=== PATIENT | female | born 1965 | race African-American/Black ===

== ENCOUNTER 2018-04-19 02:06 | Observation (INO) ==
[2018-04-19] MEDS ORDERED: NALOXONE 0.4 MG/ML VIAL IV STA (03:19)
[2018-04-19] MEDS ORDERED: FLUMAZENIL 0.5 MG/5 ML VIAL IV PRN (03:19)
[2018-04-19] MEDS ORDERED: LORazepam 2 MG/1 ML VIAL ONE (03:56)
[2018-04-19] MEDS ORDERED: LORazepam 2 MG/1 ML VIAL IV STA (04:00)
[2018-04-19 04:31] LABS: Basophils % 0.5 % (0.0-0.8); Eosinophils # 0.1 10*3/uL (0.0-0.87); Hematocrit 45.4 VOL% (35.7-47.0); Hemoglobin 15.4 GM/DL (12.0-16.0); Immature Granulocytes % 0.5 %; Immature Granulocytes Absolute 0.03 #; Lymphocytes % 17.5 % (21.3-54.2); Mean Corpuscular HGB Conc 33.9 GM/DL (32-36); Mean Corpuscular Hemoglobin 35 PG (27-34); Mean Corpuscular Volume 104.1 FL (87-102); Mean Platelet Volume 9.7 FL (9.6-12.0); Monocytes # 0.2 10*3/uL (0.11-0.8); Monocytes % 3.8 % (1.7-12.7); Neutrophils # 4.5 10*3/uL (1.4-7.4); Neutrophils % 76.7 % (38.7-73.9); Platelet Count 302 T/CUMM (130-400); Red Blood Count 4.36 MC/CUMM (3.8-5.5); Red Cell Distribution Width 12.3 % (9.3-17.3); White Blood Count 5.8 T/CUMM (4-12)
[2018-04-19 04:46] LABS: Ammonia 56 UMOL/L (11-32)
[2018-04-19 04:59] LABS: Alanine Aminotransferase 16 U/L (13-56); Albumin 3.6 G/DL (3.4-5.0); Alkaline Phosphatase 120 U/L (45-117); Aspartate Amino Transferase 18 U/L (0-37); Bilirubin,Total < 0.39 MG/DL (0.2-1.0); Blood Urea Nitrogen 5 MG/DL (7-18); Calcium 8.3 MG/DL (8.5-10.1); Glucose 91 MG/DL (74-106); Osmolality,Calculated 260.5 MOS/KG (273-304); Sodium 132 MMOL/L (136-145); Total Protein 8.4 G/DL (6.4-8.3)
[2018-04-19 05:07] LABS: Hypochromasia 1+; Platelet Estimate Adequate
[2018-04-19 05:12] LABS: Apearance,Urine CLEAR (Clear); Bacteria,Urine Occasional /HPF (Few); Bilirubin,Urine Negative (Negative); Blood, Urine Negative (Negative); Glucose,Urine (UA) Negative (Negative); Ketones,Urine Negative (Negative); Mucus,Urine Occasional /LPF (Occasional); Nitrite,Urine Negative (Negative); Protein,Urine Negative; RBC,Urine 1 /HPF (0-4); Squamous Epithelial Cell,Urine Occasional /HPF (0-10); Urine Color Straw (Yellow); Urine Specific Gravity 1.004 (1.001-1.035); Urine Urobilinogen < 2.0 EU/DL (0.2-1.0); WBC,Urine <1 /HPF (0-6)
[2018-04-19 05:25] LABS: Barbiturates Screen,Urine Negative (Negative); Benzodiazepines Screen,Urine Negative (Negative); Cannabinoid Screen,Urine Positive (Negative); Opiate Screen,Urine Negative (Negative); Phencyclidine Screen,Urine Negative (Negative)
[2018-04-19] MEDS ORDERED: ONDANSETRON 4 MG/2 ML VIAL IV PRN (06:00)
[2018-04-19] MEDS ORDERED: ALBUTEROL 2.5 MG/3 ML NEB RESP TX PRN (06:00)
[2018-04-19] MEDS ORDERED: ACETAMINOPHEN 325 MG TABLET PO PRN (06:00)
[2018-04-19] MEDS ORDERED: LORazepam 2 MG/1 ML VIAL IV PRN (06:06)
[2018-04-19] MEDS: SODIUM CHLORIDE 0.9% 1,000 ML IV SCH ×3 (08:17→22:45)
[2018-04-19] MEDS: PANTOPRAZOLE 40 MG VIAL IV SCH (08:52)
[2018-04-19] MEDS: ENOXAPARIN 40 MG/0.4 ML SYRINGE SUBCUT SCH (08:52)
[2018-04-19] MEDS: LACTULOSE 20 GM/30 ML UDCUP PO SCH ×2 (11:07→21:07)
[2018-04-20 05:12] LABS: Basophils % 0.8 % (0.0-0.8); Eosinophils # 0.1 10*3/uL (0.0-0.87); Hematocrit 37.4 VOL% (35.7-47.0); Hemoglobin 12.8 GM/DL (12.0-16.0); Immature Granulocytes % 0.2 %; Immature Granulocytes Absolute 0.01 #; Lymphocytes # 1.6 10*3/uL (1.4-4.0); Lymphocytes % 30.3 % (21.3-54.2); Mean Corpuscular HGB Conc 34.2 GM/DL (32-36); Mean Corpuscular Hemoglobin 35 PG (27-34); Mean Corpuscular Volume 101.6 FL (87-102); Mean Platelet Volume 9.9 FL (9.6-12.0); Monocytes # 0.6 10*3/uL (0.11-0.8); Monocytes % 10.9 % (1.7-12.7); Neutrophils % 56.8 % (38.7-73.9); Platelet Count 296 T/CUMM (130-400); Red Blood Count 3.68 MC/CUMM (3.8-5.5); Red Cell Distribution Width 12.3 % (9.3-17.3); White Blood Count 5.3 T/CUMM (4-12)
[2018-04-20 05:53] LABS: Albumin 2.7 G/DL (3.4-5.0); Bilirubin,Total 0.5 MG/DL (0.2-1.0); Calcium 7.8 MG/DL (8.5-10.1); Osmolality,Calculated 269.8 MOS/KG (273-304); Potassium 3.7 MMOL/L (3.5-5.1); Total Protein 6.4 G/DL (6.4-8.3)
[2018-04-20] MEDS: PANTOPRAZOLE 40 MG VIAL IV SCH (09:46)
[2018-04-20] MEDS: LACTULOSE 20 GM/30 ML UDCUP PO SCH (09:46)
[2018-04-20] MEDS: ENOXAPARIN 40 MG/0.4 ML SYRINGE SUBCUT SCH (09:46)
[2018-04-20] MEDS: SODIUM CHLORIDE 0.9% 1,000 ML IV SCH ×2 (09:48→13:25)
[2018-04-20 11:42] VITALS: BP 164/108
[2018-04-20] MEDS ORDERED: amLODIPine 5 MG TABLET PO ONE (13:30)
== END 2018-04-20 13:55 | disposition home or self-care (01) ==
LOC: EDBD → EDUNIT# → N.ED 02:06 → N.EDINP 02:06 → N.CC 11:56 → N.2E 14:31
PROVIDERS: ADMIT Internal Medicine; ATTEND Internal Medicine

== ENCOUNTER 2019-04-03 01:30 | Observation (INO) ==
[2019-04-03] MEDS ORDERED: ALBUTEROL/IPRATROPIUM 3 ML NEB RESP TX STA (02:03)
[2019-04-03] MEDS ORDERED: methylPREDNISolone SOD SUC 125 MG/2 ML VIAL IV STA (02:03)
[2019-04-03 02:12] LABS: Basophils % 0.2 % (0.0-0.8); Eosinophils # 0.1 10*3/uL (0.0-0.87); Eosinophils % 1.7 % (0.00-10.9); Hematocrit 41.6 VOL% (35.7-47.0); Hemoglobin 14.1 GM/DL (12.0-16.0); Immature Granulocytes % 0.5 %; Immature Granulocytes Absolute 0.02 #; Lymphocytes % 24.4 % (21.3-54.2); Mean Corpuscular HGB Conc 33.9 GM/DL (32-36); Mean Corpuscular Volume 101.5 FL (87-102); Mean Platelet Volume 9.3 FL (9.6-12.0); Neutrophils % 53.2 % (38.7-73.9); Platelet Count 339 T/CUMM (130-400); Red Cell Distribution Width 13.2 % (9.3-17.3); White Blood Count 4.1 T/CUMM (4-12)
[2019-04-03 02:30] LABS: Albumin 2.7 G/DL (3.4-5.0); Bilirubin,Total 0.5 MG/DL (0.2-1.0); Osmolality,Calculated 253.1 MOS/KG (273-304); Total Protein 6.2 G/DL (6.4-8.3)
[2019-04-03 02:31] LABS: PT Patient Result 10.6 SECS
[2019-04-03 02:51] LABS: Eosinophils 3 % (0-10); Lymphocytes 24 % (20-55); Platelet Estimate Normal; Segmented Neutrophils 58 % (50-85); Total Cells Counted 100
[2019-04-03 02:52] LABS: Hypochromasia Slight
[2019-04-03] MEDS ORDERED: MAGNESIUM SULF RIDER 1 GM in PREMIX 1 EACH IV STA (03:20)
[2019-04-03] MEDS ORDERED: ONDANSETRON 4 MG/2 ML VIAL IV PRN (04:02)
[2019-04-03] MEDS ORDERED: MAGNESIUM SULF RIDER 4 GM in PREMIX 1 EACH IV PRN (04:02)
[2019-04-03] MEDS ORDERED: MAGNESIUM SULF RIDER 2 GM in PREMIX 1 EACH IV PRN (04:02)
[2019-04-03] MEDS ORDERED: LORazepam 2 MG/1 ML VIAL IV PRN ×2 (04:07→15:14)
[2019-04-03] MEDS: THIAMINE 100 MG TABLET PO SCH (09:02)
[2019-04-03] MEDS: FUROSEMIDE 20 MG/2 ML VIAL IV SCH ×2 (09:02→15:33)
[2019-04-03] MEDS: FOLIC ACID 1 MG TABLET PO SCH (09:02)
[2019-04-03] MEDS: MULTIVITAMIN (CENTRUM) TABLET PO SCH (09:02)
[2019-04-03] MEDS: PANTOPRAZOLE 40 MG TABLET PO SCH (09:02)
[2019-04-03] MEDS: ENOXAPARIN 40 MG/0.4 ML SYRINGE SUBCUT SCH (09:02)
[2019-04-03] MEDS ORDERED: ALBUTEROL 2.5 MG/3 ML NEB RESP TX PRN (10:23)
[2019-04-03] MEDS ORDERED: POTASSIUM CHLORIDE 20 MEQ TABLET PO ONE (10:27)
[2019-04-03] MEDS: methylPREDNISolone SOD SUC 125 MG/2 ML VIAL IV SCH ×2 (11:45→22:03)
[2019-04-03] MEDS: LISINOPRIL 2.5 MG TABLET PO SCH (11:45)
[2019-04-03] MEDS: LEVOFLOXACIN INJ 750 MG in PREMIX 1 EACH IV SCH (11:46)
[2019-04-03] MEDS: ALBUTEROL/IPRATROPIUM 3 ML NEB RESP TX SCH ×2 (13:15→19:00)
[2019-04-03] MEDS: ACETAMINOPHEN 325 MG TABLET PO PRN (16:02)
[2019-04-03 17:40] LABS: Barbiturates Screen,Urine Negative (Negative); Benzodiazepines Screen,Urine Negative (Negative); Cannabinoid Screen,Urine Negative (Negative); Opiate Screen,Urine Negative (Negative); Phencyclidine Screen,Urine Negative (Negative)
[2019-04-04] MEDS: ACETAMINOPHEN 325 MG TABLET PO PRN ×2 (02:46→09:54)
[2019-04-04 05:27] LABS: Hematocrit 40.8 VOL% (35.7-47.0); Hemoglobin 14.5 GM/DL (12.0-16.0); Immature Granulocytes % 0.2 %; Immature Granulocytes Absolute 0.01 #; Lymphocytes # 0.3 10*3/uL (1.4-4.0); Lymphocytes % 4.4 % (21.3-54.2); Mean Corpuscular HGB Conc 35.5 GM/DL (32-36); Mean Corpuscular Volume 97.8 FL (87-102); Mean Platelet Volume 9.5 FL (9.6-12.0); Monocytes % 6.7 % (1.7-12.7); Neutrophils % 88.7 % (38.7-73.9); Platelet Count 330 T/CUMM (130-400); Red Blood Count 4.17 MC/CUMM (3.8-5.5); Red Cell Distribution Width 12.5 % (9.3-17.3); White Blood Count 6.1 T/CUMM (4-12)
[2019-04-04 05:43] LABS: Calcium 7.9 MG/DL (8.5-10.1); Osmolality,Calculated 259.1 MOS/KG (273-304)
[2019-04-04 05:45] LABS: Albumin 2.5 G/DL (3.4-5.0); Bilirubin,Total 0.5 MG/DL (0.2-1.0); Calcium 7.9 MG/DL (8.5-10.1); Osmolality,Calculated 259.1 MOS/KG (273-304)
[2019-04-04 05:49] LABS: Hypochromasia 1+; Lymphocytes 2 % (20-55); Platelet Estimate Adequate; Segmented Neutrophils 93 % (50-85); Total Cells Counted 100
[2019-04-04] MEDS: ALBUTEROL/IPRATROPIUM 3 ML NEB RESP TX SCH ×3 (07:48→12:02)
[2019-04-04] MEDS ORDERED: POTASSIUM CHLORIDE 20 MEQ TABLET PO ONE ×2 (09:00→12:00)
[2019-04-04] MEDS: LISINOPRIL 2.5 MG TABLET PO SCH (09:19)
[2019-04-04] MEDS: THIAMINE 100 MG TABLET PO SCH (09:19)
[2019-04-04] MEDS: MULTIVITAMIN (CENTRUM) TABLET PO SCH (09:19)
[2019-04-04] MEDS: FUROSEMIDE 20 MG/2 ML VIAL IV SCH ×2 (09:19→15:15)
[2019-04-04] MEDS: FOLIC ACID 1 MG TABLET PO SCH (09:19)
[2019-04-04] MEDS: PANTOPRAZOLE 40 MG TABLET PO SCH (09:20)
[2019-04-04] MEDS: ENOXAPARIN 40 MG/0.4 ML SYRINGE SUBCUT SCH (09:20)
[2019-04-04] MEDS ORDERED: FUROSEMIDE 40 MG/4 ML VIAL IV ONE (10:39)
[2019-04-04 11:32] VITALS: BP 137/81
[2019-04-04] MEDS: methylPREDNISolone SOD SUC 125 MG/2 ML VIAL IV SCH (11:39)
[2019-04-04] MEDS: LEVOFLOXACIN INJ 750 MG in PREMIX 1 EACH IV SCH (11:40)
== END 2019-04-04 15:40 | disposition home or self-care (01) ==
LOC: EDBD → EDUNIT# → N.ED 01:30 → N.EDINP 01:30 → N.5E 04:36
PROVIDERS: ADMIT Internal Medicine; ATTEND Internal Medicine

== ENCOUNTER 2019-04-11 21:23 | Inpatient (IN) ==
[2019-04-11 22:08] LABS: Basophils % 0.8 % (0.0-0.8); Eosinophils # 0.1 10*3/uL (0.0-0.87); Hematocrit 41.1 VOL% (35.7-47.0); Hemoglobin 14.3 GM/DL (12.0-16.0); Immature Granulocytes % 0.2 %; Immature Granulocytes Absolute 0.01 #; Lymphocytes # 1.3 10*3/uL (1.4-4.0); Lymphocytes % 27.7 % (21.3-54.2); Mean Corpuscular HGB Conc 34.8 GM/DL (32-36); Mean Corpuscular Volume 97.6 FL (87-102); Mean Platelet Volume 9.6 FL (9.6-12.0); Neutrophils % 46.3 % (38.7-73.9); Platelet Count 268 T/CUMM (130-400); Red Blood Count 4.21 MC/CUMM (3.8-5.5); Red Cell Distribution Width 12.7 % (9.3-17.3); White Blood Count 4.8 T/CUMM (4-12)
[2019-04-11 22:29] LABS: Albumin 3.6 G/DL (3.4-5.0); Bilirubin,Total 1.3 MG/DL (0.2-1.0); Calcium 8.5 MG/DL (8.5-10.1); Osmolality,Calculated 250.4 MOS/KG (273-304); Total Protein 7.3 G/DL (6.4-8.3)
[2019-04-11] MEDS ORDERED: ALBUTEROL/IPRATROPIUM 3 ML NEB RESP TX STA (23:00)
[2019-04-11] MEDS ORDERED: FUROSEMIDE 40 MG/4 ML VIAL IV STA (23:08)
[2019-04-11 23:15] LABS: Apearance,Urine CLEAR (Clear); Bacteria,Urine Occasional /HPF (Few); Bilirubin,Urine Negative (Negative); Blood, Urine Small mg/dL (Negative); Glucose,Urine (UA) Negative (Negative); Ketones,Urine Negative (Negative); Nitrite,Urine Negative (Negative); Protein,Urine Negative; RBC,Urine <1 /HPF (0-4); Squamous Epithelial Cell,Urine Occasional /HPF (0-10); Urine Color Colorless (Yellow); Urine Specific Gravity 1.002 (1.001-1.035); Urine Urobilinogen < 2.0 EU/DL (0.2-1.0); WBC,Urine <1 /HPF (0-6)
[2019-04-11 23:17] LABS: Anisocytosis 1+; Lymphocytes 32 % (20-55); Platelet Estimate Adequate; Segmented Neutrophils 49 % (50-85); Total Cells Counted 100
[2019-04-11 23:26] LABS: Barbiturates Screen,Urine Negative (Negative); Benzodiazepines Screen,Urine Negative (Negative); Cannabinoid Screen,Urine Negative (Negative); Opiate Screen,Urine Negative (Negative); Phencyclidine Screen,Urine Negative (Negative)
[2019-04-11] MEDS ORDERED: FUROSEMIDE 100 MG/10 ML VIAL IV STA (23:38)
[2019-04-11] MEDS ORDERED: FUROSEMIDE 40 MG/4 ML VIAL ONE (23:45)
[2019-04-12] MEDS ORDERED: guaiFENesin/DM ER 600-30 MG TABLET PO PRN (00:07)
[2019-04-12] MEDS ORDERED: NICOTINE 21 MG/24 HR PATCH TRANSDERM PRN (00:07)
[2019-04-12] MEDS ORDERED: methylPREDNISolone SOD SUC 125 MG/2 ML VIAL IV STA (00:07)
[2019-04-12] MEDS ORDERED: BISACODYL 5 MG TABLET PO PRN (00:07)
[2019-04-12] MEDS ORDERED: ONDANSETRON 4 MG/2 ML VIAL IV PRN (00:07)
[2019-04-12] MEDS ORDERED: diphenhydrAMINE CAP 25 MG CAPSULE PO PRN (00:07)
[2019-04-12] MEDS ORDERED: FUROSEMIDE 100 MG/10 ML VIAL IV STA (00:09)
[2019-04-12] MEDS ORDERED: LORazepam 2 MG/1 ML VIAL IV STA (00:09)
[2019-04-12] MEDS ORDERED: LORazepam 2 MG/1 ML VIAL ONE (00:10)
[2019-04-12 00:37] LABS: Risk Ratio 1.84; Thyroid Stimulating Hormone 0.77 uIU/ml (0.358-3.74); VLDL CHOLESTEROL 20.6 MG/DL
[2019-04-12] MEDS: ALBUTEROL/IPRATROPIUM 3 ML NEB RESP TX SCH ×4 (02:16→20:10)
[2019-04-12] MEDS ORDERED: MORPHINE 4 MG/1 ML VIAL IV PRN (03:14)
[2019-04-12 07:21] LABS: Basophils % 0.3 % (0.0-0.8); Hematocrit 41.3 VOL% (35.7-47.0); Hemoglobin 14.5 GM/DL (12.0-16.0); Immature Granulocytes % 0.3 %; Immature Granulocytes Absolute 0.01 #; Lymphocytes # 0.2 10*3/uL (1.4-4.0); Lymphocytes % 6.8 % (21.3-54.2); Mean Corpuscular HGB Conc 35.1 GM/DL (32-36); Mean Corpuscular Volume 98.8 FL (87-102); Mean Platelet Volume 10.3 FL (9.6-12.0); Monocytes % 5.1 % (1.7-12.7); Neutrophils % 87.5 % (38.7-73.9); Platelet Count 265 T/CUMM (130-400); Red Blood Count 4.18 MC/CUMM (3.8-5.5); Red Cell Distribution Width 12.8 % (9.3-17.3); White Blood Count 3.5 T/CUMM (4-12)
[2019-04-12] MEDS: methylPREDNISolone SOD SUC 40 MG/1 ML VIAL IV SCH ×2 (07:23→12:36)
[2019-04-12 07:54] LABS: Albumin 2.9 G/DL (3.4-5.0); Bilirubin,Total 1.2 MG/DL (0.2-1.0); Calcium 8.5 MG/DL (8.5-10.1); Osmolality,Calculated 257.8 MOS/KG (273-304); Total Protein 6.6 G/DL (6.4-8.3)
[2019-04-12] MEDS ORDERED: GLUCAGON 1 MG VIAL IM PRN (08:13)
[2019-04-12] MEDS ORDERED: DEXTROSE 50% 25 GM/50 ML VIAL IV PRN (08:13)
[2019-04-12] MEDS: ENOXAPARIN 40 MG/0.4 ML SYRINGE SUBCUT SCH (09:23)
[2019-04-12] MEDS: FUROSEMIDE 40 MG/4 ML VIAL IV SCH ×2 (09:23→15:41)
[2019-04-12] MEDS: PANTOPRAZOLE 40 MG TABLET PO SCH (09:26)
[2019-04-12] MEDS ORDERED: MAGNESIUM SULF RIDER 4 GM in PREMIX 1 EACH IV PRN (12:12)
[2019-04-12] MEDS ORDERED: MAGNESIUM SULF RIDER 2 GM in PREMIX 1 EACH IV PRN (12:12)
[2019-04-12] MEDS: LISINOPRIL 5 MG TABLET PO SCH (12:36)
[2019-04-12] MEDS: INSULIN REGULAR 100 UNIT/ML SUBCUT SCH ×3 (12:36→21:06)
[2019-04-12] MEDS: POTASSIUM CHLORIDE 20 MEQ TABLET PO PRN (12:36)
[2019-04-12] MEDS: LACTULOSE 20 GM/30 ML UDCUP PO ONE ×2 (15:41→16:09)
[2019-04-12] MEDS ORDERED: LORazepam 1 MG TABLET PO PRN (16:50)
[2019-04-12] MEDS: MULTIVITAMIN (CENTRUM) TABLET PO SCH (17:22)
[2019-04-12] MEDS: THIAMINE 100 MG TABLET PO SCH (17:22)
[2019-04-12] MEDS: FOLIC ACID 1 MG TABLET PO SCH (17:22)
[2019-04-12] MEDS: CARVEDILOL 3.125 MG TABLET PO SCH (20:23)
[2019-04-13] MEDS: ALBUTEROL/IPRATROPIUM 3 ML NEB RESP TX SCH ×4 (00:56→19:59)
[2019-04-13 05:09] LABS: Basophils % 0.1 % (0.0-0.8); Hematocrit 40.4 VOL% (35.7-47.0); Hemoglobin 14.2 GM/DL (12.0-16.0); Immature Granulocytes % 0.4 %; Immature Granulocytes Absolute 0.05 #; Lymphocytes # 0.7 10*3/uL (1.4-4.0); Lymphocytes % 6.1 % (21.3-54.2); Mean Corpuscular HGB Conc 35.1 GM/DL (32-36); Mean Corpuscular Volume 98.1 FL (87-102); Mean Platelet Volume 10.5 FL (9.6-12.0); Monocytes % 9.8 % (1.7-12.7); Neutrophils % 83.6 % (38.7-73.9); Platelet Count 268 T/CUMM (130-400); Red Blood Count 4.12 MC/CUMM (3.8-5.5); Red Cell Distribution Width 12.4 % (9.3-17.3); White Blood Count 11.6 T/CUMM (4-12)
[2019-04-13 06:02] LABS: Albumin 2.3 G/DL (3.4-5.0); Bilirubin,Total 1.2 MG/DL (0.2-1.0); Calcium 7.9 MG/DL (8.5-10.1); Osmolality,Calculated 258.9 MOS/KG (273-304); Total Protein 5.3 G/DL (6.4-8.3)
[2019-04-13] MEDS: POTASSIUM CHLORIDE 20 MEQ TABLET PO PRN ×5 (06:30→23:34)
[2019-04-13] MEDS: LISINOPRIL 5 MG TABLET PO SCH ×3 (08:24→20:30)
[2019-04-13] MEDS: CARVEDILOL 3.125 MG TABLET PO SCH (08:24)
[2019-04-13] MEDS: glipiZIDE 5 MG TABLET PO SCH (08:24)
[2019-04-13] MEDS: FOLIC ACID 1 MG TABLET PO SCH (08:25)
[2019-04-13] MEDS: THIAMINE 100 MG TABLET PO SCH (08:25)
[2019-04-13] MEDS: MULTIVITAMIN (CENTRUM) TABLET PO SCH (08:25)
[2019-04-13] MEDS: PANTOPRAZOLE 40 MG TABLET PO SCH (08:25)
[2019-04-13] MEDS: ENOXAPARIN 40 MG/0.4 ML SYRINGE SUBCUT SCH (08:27)
[2019-04-13] MEDS: INSULIN REGULAR 100 UNIT/ML SUBCUT SCH ×4 (08:27→22:48)
[2019-04-13] MEDS: FUROSEMIDE 40 MG/4 ML VIAL IV SCH ×2 (08:27→16:29)
[2019-04-13] MEDS: CARVEDILOL 6.25 MG TABLET PO SCH ×2 (08:37→16:30)
[2019-04-13] MEDS ORDERED: LACTULOSE 20 GM/30 ML UDCUP PO ONE (09:00)
[2019-04-13] MEDS ORDERED: POTASSIUM CHLORIDE 20 MEQ TABLET PO ONE (09:00)
[2019-04-13] MEDS: ACETAMINOPHEN 325 MG TABLET PO PRN (13:58)
[2019-04-14] MEDS: ALBUTEROL/IPRATROPIUM 3 ML NEB RESP TX SCH ×2 (01:15→06:48)
[2019-04-14] MEDS: ACETAMINOPHEN 325 MG TABLET PO PRN (01:25)
[2019-04-14] MEDS: POTASSIUM CHLORIDE 20 MEQ TABLET PO PRN (01:26)
[2019-04-14 06:01] LABS: Basophils % 0.2 % (0.0-0.8); Eosinophils # 0.1 10*3/uL (0.0-0.87); Eosinophils % 0.6 % (0.00-10.9); Hematocrit 39.8 VOL% (35.7-47.0); Hemoglobin 13.5 GM/DL (12.0-16.0); Immature Granulocytes % 0.4 %; Immature Granulocytes Absolute 0.03 #; Lymphocytes # 1.1 10*3/uL (1.4-4.0); Lymphocytes % 13.1 % (21.3-54.2); Mean Corpuscular HGB Conc 33.9 GM/DL (32-36); Mean Corpuscular Volume 100.8 FL (87-102); Mean Platelet Volume 10.2 FL (9.6-12.0); Monocytes % 7.5 % (1.7-12.7); Neutrophils % 78.2 % (38.7-73.9); Platelet Count 245 T/CUMM (130-400); Red Blood Count 3.95 MC/CUMM (3.8-5.5); Red Cell Distribution Width 13.1 % (9.3-17.3); White Blood Count 8.1 T/CUMM (4-12)
[2019-04-14 06:24] LABS: Albumin 2.4 G/DL (3.4-5.0); Bilirubin,Total 0.8 MG/DL (0.2-1.0); Osmolality,Calculated 261.7 MOS/KG (273-304); Total Protein 5.1 G/DL (6.4-8.3)
[2019-04-14 07:59] VITALS: BP 90/58
[2019-04-14] MEDS ORDERED: FUROSEMIDE 40 MG TABLET PO SCH (08:00)
[2019-04-14] MEDS: LISINOPRIL 5 MG TABLET PO SCH (08:21)
[2019-04-14] MEDS: THIAMINE 100 MG TABLET PO SCH (08:21)
[2019-04-14] MEDS: INSULIN REGULAR 100 UNIT/ML SUBCUT SCH ×2 (08:21→08:40)
[2019-04-14] MEDS: PANTOPRAZOLE 40 MG TABLET PO SCH (08:21)
[2019-04-14] MEDS: glipiZIDE 5 MG TABLET PO SCH (08:21)
[2019-04-14] MEDS: ENOXAPARIN 40 MG/0.4 ML SYRINGE SUBCUT SCH (08:21)
[2019-04-14] MEDS: FOLIC ACID 1 MG TABLET PO SCH (08:21)
[2019-04-14] MEDS: CARVEDILOL 6.25 MG TABLET PO SCH (08:21)
[2019-04-14] MEDS: MULTIVITAMIN (CENTRUM) TABLET PO SCH (08:21)
== END 2019-04-14 09:12 | disposition home or self-care (01) | DRG 816 ==
LOC: EDBD → EDUNIT# → N.EDINP 21:23 → N.ED 21:23 → N.2E 04-12 01:31 → SUATTDRO 04-13 10:51
PROVIDERS: ADMIT Internal Medicine; ATTEND Family Medicine

== ENCOUNTER 2019-04-14 20:08 | Observation (INO) ==
[2019-04-14] MEDS ORDERED: FUROSEMIDE 40 MG/4 ML VIAL IV STA (20:49)
[2019-04-14] MEDS ORDERED: ONDANSETRON 4 MG/2 ML VIAL IV STA (20:49)
[2019-04-14] MEDS ORDERED: methylPREDNISolone SOD SUC 125 MG/2 ML VIAL IV STA (20:49)
[2019-04-14] MEDS ORDERED: ALBUTEROL 2.5 MG/3 ML NEB RESP TX SCH (21:00)
[2019-04-14 21:06] LABS: Apearance,Urine CLEAR (Clear); Bilirubin,Urine Negative (Negative); Blood, Urine Negative (Negative); Glucose,Urine (UA) Negative (Negative); Ketones,Urine Negative (Negative); Nitrite,Urine Negative (Negative); Protein,Urine Negative; RBC,Urine <1 /HPF (0-4); Squamous Epithelial Cell,Urine Occasional /HPF (0-10); Urine Color Straw (Yellow); Urine Specific Gravity 1.002 (1.001-1.035); Urine Urobilinogen < 2.0 EU/DL (0.2-1.0); WBC,Urine <1 /HPF (0-6)
[2019-04-14 21:11] LABS: Basophils % 0.4 % (0.0-0.8); Eosinophils # 0.1 10*3/uL (0.0-0.87); Hemoglobin 13.2 GM/DL (12.0-16.0); Immature Granulocytes % 0.3 %; Immature Granulocytes Absolute 0.02 #; Lymphocytes % 14.5 % (21.3-54.2); Mean Corpuscular Volume 102.6 FL (87-102); Mean Platelet Volume 9.7 FL (9.6-12.0); Monocytes % 10.5 % (1.7-12.7); Neutrophils % 73.3 % (38.7-73.9); Platelet Count 232 T/CUMM (130-400); Red Cell Distribution Width 13.3 % (9.3-17.3); White Blood Count 6.9 T/CUMM (4-12)
[2019-04-14 21:12] LABS: Barbiturates Screen,Urine Negative (Negative); Benzodiazepines Screen,Urine Negative (Negative); Cannabinoid Screen,Urine Negative (Negative); Opiate Screen,Urine Negative (Negative); Phencyclidine Screen,Urine Negative (Negative)
[2019-04-14 21:31] LABS: INR 0.9; PT Patient Result 10.2 SECS; Partial Thromboplastin Time 24.2 SECS (0-40)
[2019-04-14 21:41] LABS: Alanine Aminotransferase 21 U/L (13-56); Albumin 2.8 G/DL (3.4-5.0); Alkaline Phosphatase 127 U/L (45-117); Aspartate Amino Transferase 20 U/L (0-37); Blood Urea Nitrogen 10 MG/DL (7-18); Calcium 8.2 MG/DL (8.5-10.1); Osmolality,Calculated 259.5 MOS/KG (273-304); Total Protein 5.9 G/DL (6.4-8.3)
[2019-04-14 21:43] LABS: Glucose 43 MG/DL (74-106)
[2019-04-15] MEDS ORDERED: ACETAMINOPHEN 325 MG TABLET PO PRN (00:13)
[2019-04-15] MEDS ORDERED: MORPHINE 4 MG/1 ML VIAL IV PRN (00:13)
[2019-04-15] MEDS ORDERED: diphenhydrAMINE CAP 25 MG CAPSULE PO PRN (00:13)
[2019-04-15] MEDS ORDERED: ONDANSETRON 4 MG/2 ML VIAL IV PRN (00:13)
[2019-04-15] MEDS ORDERED: NICOTINE 21 MG/24 HR PATCH TRANSDERM PRN (00:13)
[2019-04-15] MEDS ORDERED: PROMETHAZINE 25 MG/1 ML VIAL IM PRN (00:13)
[2019-04-15] MEDS ORDERED: GLUCAGON 1 MG VIAL IM PRN (00:15)
[2019-04-15] MEDS ORDERED: DEXTROSE 50% 25 GM/50 ML VIAL IV PRN (00:15)
[2019-04-15] MEDS: ALBUTEROL/IPRATROPIUM 3 ML NEB RESP TX SCH ×3 (01:54→13:42)
[2019-04-15] MEDS: CARVEDILOL 6.25 MG TABLET PO SCH ×2 (08:45→17:45)
[2019-04-15] MEDS: FUROSEMIDE 40 MG/4 ML VIAL IV SCH ×2 (08:55→15:44)
[2019-04-15] MEDS: INSULIN REGULAR 100 UNIT/ML SUBCUT SCH ×3 (08:57→16:05)
[2019-04-15] MEDS ORDERED: PANTOPRAZOLE 40 MG TABLET PO SCH (09:00)
[2019-04-15] MEDS ORDERED: methylPREDNISolone SOD SUC 40 MG/1 ML VIAL IV SCH (09:00)
[2019-04-15] MEDS ORDERED: FOLIC ACID 1 MG TABLET PO SCH (09:00)
[2019-04-15] MEDS ORDERED: LISINOPRIL 5 MG TABLET PO SCH (09:00)
[2019-04-15] MEDS ORDERED: MULTIVITAMIN (CENTRUM) TABLET PO SCH (09:00)
[2019-04-15] MEDS ORDERED: THIAMINE 100 MG TABLET PO SCH (09:00)
[2019-04-15] MEDS ORDERED: FUROSEMIDE 40 MG/4 ML VIAL IV ONE (13:29)
[2019-04-15 17:09] VITALS: BP 115/88
== END 2019-04-15 17:54 | disposition home or self-care (01) ==
LOC: EDBD → EDUNIT# → N.EDINP 20:08 → N.ED 20:08 → N.2E 04-15 00:34
PROVIDERS: ADMIT Family Medicine; ATTEND Family Medicine

== ENCOUNTER 2019-04-18 01:28 | Inpatient (IN) ==
[2019-04-18 01:56] LABS: Basophils % 0.3 % (0.0-0.8); Eosinophils # 0.1 10*3/uL (0.0-0.87); Eosinophils % 1.6 % (0.00-10.9); Hematocrit 38.4 VOL% (35.7-47.0); Hemoglobin 13.3 GM/DL (12.0-16.0); Immature Granulocytes % 0.3 %; Immature Granulocytes Absolute 0.02 #; Lymphocytes # 1.4 10*3/uL (1.4-4.0); Lymphocytes % 22.1 % (21.3-54.2); Mean Corpuscular HGB Conc 34.6 GM/DL (32-36); Mean Corpuscular Volume 98.5 FL (87-102); Mean Platelet Volume 9.9 FL (9.6-12.0); Monocytes % 12.3 % (1.7-12.7); Neutrophils % 63.4 % (38.7-73.9); Platelet Count 236 T/CUMM (130-400); Red Cell Distribution Width 13.2 % (9.3-17.3); White Blood Count 6.1 T/CUMM (4-12)
[2019-04-18 02:15] LABS: Bilirubin,Total 0.4 MG/DL (0.2-1.0); Calcium 8.4 MG/DL (8.5-10.1); Osmolality,Calculated 258.8 MOS/KG (273-304); Total Protein 6.2 G/DL (6.4-8.3)
[2019-04-18] MEDS ORDERED: ALBUTEROL/IPRATROPIUM 3 ML NEB RESP TX STA (02:49)
[2019-04-18 03:13] LABS: Barbiturates Screen,Urine Negative (Negative); Benzodiazepines Screen,Urine Negative (Negative); Cannabinoid Screen,Urine Negative (Negative); Opiate Screen,Urine Negative (Negative); Phencyclidine Screen,Urine Negative (Negative)
[2019-04-18] MEDS ORDERED: methylPREDNISolone SOD SUC 125 MG/2 ML VIAL IV STA (03:50)
[2019-04-18] MEDS ORDERED: FUROSEMIDE 40 MG/4 ML VIAL IV STA (04:52)
[2019-04-18] MEDS ORDERED: DOCUSATE SODIUM 100 MG CAPSULE PO PRN (06:10)
[2019-04-18] MEDS ORDERED: ALBUTEROL 2.5 MG/3 ML NEB RESP TX PRN (06:10)
[2019-04-18] MEDS ORDERED: GLUCAGON 1 MG VIAL IM PRN (06:10)
[2019-04-18] MEDS ORDERED: DEXTROSE 50% 25 GM/50 ML VIAL IV PRN (06:10)
[2019-04-18] MEDS ORDERED: ONDANSETRON 4 MG/2 ML VIAL IV PRN (06:10)
[2019-04-18] MEDS: LEVOFLOXACIN INJ 750 MG in PREMIX 1 EACH IV SCH (07:39)
[2019-04-18] MEDS: ALBUTEROL/IPRATROPIUM 3 ML NEB RESP TX SCH ×3 (07:44→18:30)
[2019-04-18] MEDS: INSULIN LISPRO 100 UNIT/ML SUBCUT SCH ×4 (08:26→21:03)
[2019-04-18] MEDS: FUROSEMIDE 40 MG/4 ML VIAL IV SCH ×2 (09:08→17:06)
[2019-04-18] MEDS: glipiZIDE 5 MG TABLET PO SCH (09:09)
[2019-04-18] MEDS: FOLIC ACID 1 MG TABLET PO SCH (09:09)
[2019-04-18] MEDS: LISINOPRIL 5 MG TABLET PO SCH ×2 (09:09→20:58)
[2019-04-18] MEDS: THIAMINE 100 MG TABLET PO SCH (09:09)
[2019-04-18] MEDS: CARVEDILOL 6.25 MG TABLET PO SCH ×2 (09:09→17:05)
[2019-04-18] MEDS: ENOXAPARIN 40 MG/0.4 ML SYRINGE SUBCUT SCH (09:09)
[2019-04-18] MEDS: MULTIVITAMIN (CENTRUM) TABLET PO SCH (09:09)
[2019-04-18] MEDS: methylPREDNISolone SOD SUC 40 MG/1 ML VIAL IV SCH ×2 (11:55→20:59)
[2019-04-18] MEDS: ACETAMINOPHEN 325 MG TABLET PO PRN ×2 (12:00→20:59)
[2019-04-18] MEDS ORDERED: LORazepam 2 MG/1 ML VIAL IV PRN (16:07)
[2019-04-18] MEDS: LORazepam 0.5 MG TABLET PO PRN (23:34)
[2019-04-19] MEDS: ALBUTEROL/IPRATROPIUM 3 ML NEB RESP TX SCH ×4 (00:40→19:18)
[2019-04-19 05:27] LABS: Basophils % 0.1 % (0.0-0.8); Hemoglobin 13.5 GM/DL (12.0-16.0); Immature Granulocytes % 0.5 %; Immature Granulocytes Absolute 0.04 #; Lymphocytes # 0.4 10*3/uL (1.4-4.0); Lymphocytes % 4.8 % (21.3-54.2); Mean Corpuscular HGB Conc 35.5 GM/DL (32-36); Mean Corpuscular Volume 96.4 FL (87-102); Mean Platelet Volume 10.7 FL (9.6-12.0); Monocytes % 5.5 % (1.7-12.7); Neutrophils % 89.1 % (38.7-73.9); Platelet Count 251 T/CUMM (130-400); Red Blood Count 3.94 MC/CUMM (3.8-5.5); Red Cell Distribution Width 12.8 % (9.3-17.3); White Blood Count 8.5 T/CUMM (4-12)
[2019-04-19 06:02] LABS: Osmolality,Calculated 265.2 MOS/KG (273-304)
[2019-04-19 06:07] LABS: Lymphocytes 8 % (20-55); Platelet Estimate Normal; Polychromasia Few; Segmented Neutrophils 90 % (50-85); Total Cells Counted 100
[2019-04-19] MEDS: methylPREDNISolone SOD SUC 40 MG/1 ML VIAL IV SCH ×3 (06:14→22:18)
[2019-04-19] MEDS: LEVOFLOXACIN INJ 750 MG in PREMIX 1 EACH IV SCH (06:14)
[2019-04-19] MEDS: FUROSEMIDE 40 MG/4 ML VIAL IV SCH ×2 (09:42→15:47)
[2019-04-19] MEDS: MULTIVITAMIN (CENTRUM) TABLET PO SCH (09:43)
[2019-04-19] MEDS: FOLIC ACID 1 MG TABLET PO SCH (09:43)
[2019-04-19] MEDS: CARVEDILOL 6.25 MG TABLET PO SCH ×2 (09:43→16:28)
[2019-04-19] MEDS: INSULIN LISPRO 100 UNIT/ML SUBCUT SCH ×4 (09:43→21:20)
[2019-04-19] MEDS: THIAMINE 100 MG TABLET PO SCH (09:43)
[2019-04-19] MEDS: ENOXAPARIN 40 MG/0.4 ML SYRINGE SUBCUT SCH (09:43)
[2019-04-19] MEDS: glipiZIDE 5 MG TABLET PO SCH (09:44)
[2019-04-19] MEDS: LISINOPRIL 5 MG TABLET PO SCH ×2 (09:44→22:17)
[2019-04-19] MEDS ORDERED: MAGNESIUM SULF RIDER 4 GM in PREMIX 1 EACH IV PRN (11:07)
[2019-04-19] MEDS ORDERED: MAGNESIUM SULF RIDER 2 GM in PREMIX 1 EACH IV PRN (11:07)
[2019-04-19] MEDS: SPIRONOLACTONE 25 MG TABLET PO SCH ×2 (15:47→22:17)
[2019-04-19] MEDS: LORazepam 0.5 MG TABLET PO PRN (22:16)
[2019-04-19] MEDS: ACETAMINOPHEN 325 MG TABLET PO PRN (22:17)
[2019-04-20] MEDS: ALBUTEROL/IPRATROPIUM 3 ML NEB RESP TX SCH ×5 (00:53→20:00)
[2019-04-20 06:06] LABS: Basophils % 0.1 % (0.0-0.8); Hematocrit 40.6 VOL% (35.7-47.0); Hemoglobin 14.6 GM/DL (12.0-16.0); Immature Granulocytes % 0.6 %; Immature Granulocytes Absolute 0.09 #; Lymphocytes # 0.5 10*3/uL (1.4-4.0); Lymphocytes % 3.6 % (21.3-54.2); Mean Corpuscular Volume 96.9 FL (87-102); Mean Platelet Volume 10.2 FL (9.6-12.0); Monocytes % 5.8 % (1.7-12.7); Neutrophils % 89.9 % (38.7-73.9); Platelet Count 303 T/CUMM (130-400); Red Blood Count 4.19 MC/CUMM (3.8-5.5); White Blood Count 14.4 T/CUMM (4-12)
[2019-04-20 06:07] LABS: Calcium 8.3 MG/DL (8.5-10.1); Osmolality,Calculated 257.2 MOS/KG (273-304)
[2019-04-20 06:28] LABS: Hypochromasia 1+; Lymphocytes 7 % (20-55); Platelet Estimate Adequate; Segmented Neutrophils 88 % (50-85); Total Cells Counted 100
[2019-04-20] MEDS: LORazepam 0.5 MG TABLET PO PRN ×2 (06:58→23:53)
[2019-04-20] MEDS: chlordiazePOXIDE 25 MG CAPSULE PO PRN ×2 (06:58→23:53)
[2019-04-20 07:41] LABS: Potassium,Urine Random 6 MMOL/L
[2019-04-20] MEDS: methylPREDNISolone SOD SUC 40 MG/1 ML VIAL IV SCH (09:37)
[2019-04-20] MEDS: ENOXAPARIN 40 MG/0.4 ML SYRINGE SUBCUT SCH (09:37)
[2019-04-20] MEDS: MULTIVITAMIN (CENTRUM) TABLET PO SCH (09:39)
[2019-04-20] MEDS: INSULIN LISPRO 100 UNIT/ML SUBCUT SCH ×4 (09:39→21:09)
[2019-04-20] MEDS: CARVEDILOL 6.25 MG TABLET PO SCH ×2 (09:39→16:41)
[2019-04-20] MEDS: LISINOPRIL 5 MG TABLET PO SCH ×2 (09:39→23:53)
[2019-04-20] MEDS: FOLIC ACID 1 MG TABLET PO SCH (09:39)
[2019-04-20] MEDS: THIAMINE 100 MG TABLET PO SCH (09:39)
[2019-04-20] MEDS: FUROSEMIDE 40 MG/4 ML VIAL IV SCH ×2 (09:39→16:41)
[2019-04-20] MEDS: glipiZIDE 5 MG TABLET PO SCH (09:39)
[2019-04-20] MEDS: SPIRONOLACTONE 25 MG TABLET PO SCH ×2 (09:39→23:53)
[2019-04-20] MEDS: ACETAMINOPHEN 325 MG TABLET PO PRN (18:04)
[2019-04-21] MEDS: ALBUTEROL/IPRATROPIUM 3 ML NEB RESP TX SCH ×2 (01:03→07:40)
[2019-04-21] MEDS: chlordiazePOXIDE 25 MG CAPSULE PO PRN (05:31)
[2019-04-21 06:27] LABS: Alanine Aminotransferase 28 U/L (13-56); Albumin 2.9 G/DL (3.4-5.0); Alkaline Phosphatase 198 U/L (45-117); Aspartate Amino Transferase 19 U/L (0-37); Bilirubin,Total < 0.39 MG/DL (0.2-1.0); Blood Urea Nitrogen 24 MG/DL (7-18); Calcium 8.5 MG/DL (8.5-10.1); Glucose 123 MG/DL (74-106); Osmolality,Calculated 266.7 MOS/KG (273-304); Total Protein 6.1 G/DL (6.4-8.3)
[2019-04-21] MEDS: POTASSIUM CHLORIDE 20 MEQ TABLET PO PRN ×4 (08:26→13:28)
[2019-04-21] MEDS: FOLIC ACID 1 MG TABLET PO SCH (08:27)
[2019-04-21] MEDS: MULTIVITAMIN (CENTRUM) TABLET PO SCH (08:27)
[2019-04-21] MEDS: LISINOPRIL 5 MG TABLET PO SCH (08:27)
[2019-04-21] MEDS: CARVEDILOL 6.25 MG TABLET PO SCH (08:27)
[2019-04-21] MEDS: SPIRONOLACTONE 25 MG TABLET PO SCH (08:27)
[2019-04-21] MEDS: glipiZIDE 5 MG TABLET PO SCH (08:27)
[2019-04-21] MEDS: THIAMINE 100 MG TABLET PO SCH (08:27)
[2019-04-21] MEDS: FUROSEMIDE 40 MG/4 ML VIAL IV SCH (08:28)
[2019-04-21] MEDS: ENOXAPARIN 40 MG/0.4 ML SYRINGE SUBCUT SCH (08:28)
[2019-04-21] MEDS: INSULIN LISPRO 100 UNIT/ML SUBCUT SCH ×2 (08:35→11:10)
[2019-04-21] MEDS ORDERED: predniSONE 20 MG TABLET PO SCH (09:00)
[2019-04-21 12:15] VITALS: BP 113/68
[2019-04-21] MEDS ORDERED: POTASSIUM CHLORIDE 20 MEQ TABLET PO SCH (12:30)
== END 2019-04-21 14:32 | disposition home or self-care (01) | DRG 140 ==
LOC: EDUNIT# → EDBD → N.ED 01:28 → SUATTDRO 04:50 → N.EDINP 04:50 → N.5E 05:22
PROVIDERS: ADMIT Family Medicine; ATTEND Internal Medicine

== ENCOUNTER 2019-04-24 01:09 | Observation (INO) ==
[2019-04-24] MEDS ORDERED: methylPREDNISolone SOD SUC 125 MG/2 ML VIAL IV STA (01:35)
[2019-04-24] MEDS ORDERED: ALBUTEROL/IPRATROPIUM 3 ML NEB RESP TX STA (01:35)
[2019-04-24] MEDS ORDERED: FUROSEMIDE 40 MG/4 ML VIAL IV STA (01:35)
[2019-04-24 01:51] LABS: Basophils % 0.1 % (0.0-0.8); Eosinophils # 0.1 10*3/uL (0.0-0.87); Eosinophils % 1.6 % (0.00-10.9); Hematocrit 40.2 VOL% (35.7-47.0); Hemoglobin 13.6 GM/DL (12.0-16.0); Immature Granulocytes % 0.9 %; Immature Granulocytes Absolute 0.07 #; Lymphocytes # 1.4 10*3/uL (1.4-4.0); Mean Corpuscular HGB Conc 33.8 GM/DL (32-36); Mean Platelet Volume 9.4 FL (9.6-12.0); Monocytes % 11.7 % (1.7-12.7); Neutrophils % 66.7 % (38.7-73.9); Platelet Count 277 T/CUMM (130-400); Red Blood Count 4.06 MC/CUMM (3.8-5.5); Red Cell Distribution Width 13.3 % (9.3-17.3); White Blood Count 7.4 T/CUMM (4-12)
[2019-04-24 02:36] LABS: Alanine Aminotransferase 24 U/L (13-56); Albumin 2.9 G/DL (3.4-5.0); Alkaline Phosphatase 113 U/L (45-117); Aspartate Amino Transferase 21 U/L (0-37); Bilirubin,Total < 0.39 MG/DL (0.2-1.0); Blood Urea Nitrogen 8 MG/DL (7-18); Calcium 7.9 MG/DL (8.5-10.1); Glucose 82 MG/DL (74-106); Total Protein 5.9 G/DL (6.4-8.3)
[2019-04-24] MEDS ORDERED: ONDANSETRON 4 MG/2 ML VIAL IV PRN (03:20)
[2019-04-24] MEDS ORDERED: DOCUSATE SODIUM 100 MG CAPSULE PO PRN (03:20)
[2019-04-24] MEDS ORDERED: MORPHINE 4 MG/1 ML VIAL IV PRN (03:20)
[2019-04-24] MEDS ORDERED: DEXTROSE 50% 25 GM/50 ML VIAL IV PRN (03:20)
[2019-04-24] MEDS ORDERED: GLUCAGON 1 MG VIAL IM PRN (03:20)
[2019-04-24] MEDS ORDERED: ALBUTEROL 2.5 MG/3 ML NEB RESP TX PRN (03:24)
[2019-04-24] MEDS ORDERED: ALPRAZolam 0.5 MG TABLET PO PRN (06:17)
[2019-04-24 06:33] LABS: Basophils % 0.1 % (0.0-0.8); Eosinophils # 0.1 10*3/uL (0.0-0.87); Eosinophils % 1.2 % (0.00-10.9); Hematocrit 47.3 VOL% (35.7-47.0); Hemoglobin 15.4 GM/DL (12.0-16.0); Immature Granulocytes % 0.7 %; Immature Granulocytes Absolute 0.06 #; Lymphocytes # 0.5 10*3/uL (1.4-4.0); Lymphocytes % 6.3 % (21.3-54.2); Mean Corpuscular HGB Conc 32.6 GM/DL (32-36); Mean Corpuscular Volume 101.3 FL (87-102); Mean Platelet Volume 9.4 FL (9.6-12.0); Monocytes % 7.3 % (1.7-12.7); Neutrophils % 84.4 % (38.7-73.9); Platelet Count 326 T/CUMM (130-400); Red Blood Count 4.67 MC/CUMM (3.8-5.5); Red Cell Distribution Width 13.5 % (9.3-17.3); White Blood Count 8.5 T/CUMM (4-12)
[2019-04-24 06:54] LABS: ABG Base Excess 5.5 MMOL/L (-2.5-2.5); ABG HCO3 29.1 MMOL/L (20-26); ABG Oxygen Saturation 86.6 % (95-100); ABG PCO2 64.1 MM HG (35-48); ABG PH 7.335 (7.35-7.45); ABG PO2 57.7 MM HG (80-95); ABG TCO2 29.5 MMOL/L (23-27)
[2019-04-24 07:05] LABS: Calcium 8.7 MG/DL (8.5-10.1); Osmolality,Calculated 263.4 MOS/KG (273-304)
[2019-04-24] MEDS: ALBUTEROL/IPRATROPIUM 3 ML NEB RESP TX SCH ×5 (07:40→23:36)
[2019-04-24] MEDS: INSULIN LISPRO 100 UNIT/ML SUBCUT SCH ×4 (08:53→23:29)
[2019-04-24] MEDS: PANTOPRAZOLE 40 MG TABLET PO SCH (08:54)
[2019-04-24] MEDS: FUROSEMIDE 100 MG/10 ML VIAL IV SCH ×2 (08:54→15:22)
[2019-04-24] MEDS: ENOXAPARIN 40 MG/0.4 ML SYRINGE SUBCUT SCH (08:54)
[2019-04-24] MEDS ORDERED: CLORAZEPATE 7.5 MG TABLET PO SCH (15:00)
[2019-04-24] MEDS: CARVEDILOL 6.25 MG TABLET PO SCH (17:11)
[2019-04-24] MEDS: SPIRONOLACTONE 25 MG TABLET PO SCH (20:33)
[2019-04-24] MEDS: LISINOPRIL 5 MG TABLET PO SCH (20:33)
[2019-04-24] MEDS: ACETAMINOPHEN 325 MG TABLET PO PRN (20:33)
[2019-04-25] MEDS: ALBUTEROL/IPRATROPIUM 3 ML NEB RESP TX SCH ×4 (03:16→14:50)
[2019-04-25] MEDS: ACETAMINOPHEN 325 MG TABLET PO PRN (04:45)
[2019-04-25] MEDS ORDERED: glipiZIDE 5 MG TABLET PO SCH (07:30)
[2019-04-25 08:49] LABS: Osmolality,Calculated 261.9 MOS/KG (273-304)
[2019-04-25 08:53] LABS: Hematocrit 37.6 VOL% (35.7-47.0); Hemoglobin 13.2 GM/DL (12.0-16.0); Mean Corpuscular Volume 96.2 FL (87-102); Red Blood Count 3.91 MC/CUMM (3.8-5.5); White Blood Count 13.2 T/CUMM (4-12)
[2019-04-25 08:54] LABS: Basophils % 0.2 % (0.0-0.8); Eosinophils % 0.2 % (0.00-10.9); Immature Granulocytes % 0.4 %; Lymphocytes # 0.8 10*3/uL (1.4-4.0); Lymphocytes % 6.3 % (21.3-54.2); Mean Corpuscular HGB Conc 35.1 GM/DL (32-36); Mean Platelet Volume 9.5 FL (9.6-12.0); Monocytes % 7.7 % (1.7-12.7); Neutrophils % 85.2 % (38.7-73.9); Platelet Count 322 T/CUMM (130-400); Red Cell Distribution Width 12.9 % (9.3-17.3)
[2019-04-25 08:55] LABS: Immature Granulocytes Absolute 0.05 #
[2019-04-25] MEDS: CARVEDILOL 6.25 MG TABLET PO SCH (09:16)
[2019-04-25] MEDS: INSULIN LISPRO 100 UNIT/ML SUBCUT SCH ×2 (09:16→11:36)
[2019-04-25] MEDS: SPIRONOLACTONE 25 MG TABLET PO SCH (09:17)
[2019-04-25] MEDS: ENOXAPARIN 40 MG/0.4 ML SYRINGE SUBCUT SCH (09:17)
[2019-04-25] MEDS: FUROSEMIDE 100 MG/10 ML VIAL IV SCH (09:17)
[2019-04-25] MEDS: PANTOPRAZOLE 40 MG TABLET PO SCH (09:18)
[2019-04-25] MEDS: LISINOPRIL 5 MG TABLET PO SCH (09:18)
[2019-04-25 12:14] VITALS: BP 124/75
== END 2019-04-25 15:21 | disposition home or self-care (01) ==
LOC: EDBD → EDUNIT# → N.ED 01:09 → N.EDINP 01:09 → SUATTDRO 03:20 → N.3E 03:56
PROVIDERS: ADMIT Internal Medicine; ATTEND Internal Medicine Geriatric Medicine

== ENCOUNTER 2019-04-28 01:35 | Observation (INO) ==
[2019-04-28] MEDS ORDERED: FUROSEMIDE 40 MG/4 ML VIAL IV STA ×2 (02:01→03:12)
[2019-04-28] MEDS ORDERED: ALBUTEROL/IPRATROPIUM 3 ML NEB RESP TX STA ×2 (02:01→03:41)
[2019-04-28] MEDS ORDERED: DEXTROSE 50% 25 GM/50 ML VIAL IV STA ×3 (02:01→05:50)
[2019-04-28] MEDS ORDERED: DEXTROSE 50% 25 GM/50 ML SYRINGE IV ONE ×3 (02:02→05:50)
[2019-04-28 02:34] LABS: Alanine Aminotransferase 28 U/L (13-56); Albumin 3.2 G/DL (3.4-5.0); Alkaline Phosphatase 71 U/L (45-117); Aspartate Amino Transferase 25 U/L (0-37); Bilirubin,Total < 0.39 MG/DL (0.2-1.0); Blood Urea Nitrogen 11 MG/DL (7-18); Calcium 8.1 MG/DL (8.5-10.1); Estimated Glom Filtration Rate 134 ML/MIN; Osmolality,Calculated 250.2 MOS/KG (273-304); Total Protein 6.5 G/DL (6.4-8.3)
[2019-04-28 02:42] LABS: Glucose 41 MG/DL (74-106)
[2019-04-28 03:01] LABS: Basophils % 0.2 % (0.0-0.8); Eosinophils # 0.1 10*3/uL (0.0-0.87); Eosinophils % 0.5 % (0.00-10.9); Hematocrit 43.7 VOL% (35.7-47.0); Hemoglobin 14.7 GM/DL (12.0-16.0); Immature Granulocytes % 1.2 %; Immature Granulocytes Absolute 0.12 #; Lymphocytes % 20.1 % (21.3-54.2); Mean Corpuscular HGB Conc 33.6 GM/DL (32-36); Mean Corpuscular Volume 98.6 FL (87-102); Mean Platelet Volume 8.9 FL (9.6-12.0); Platelet Count 332 T/CUMM (130-400); Red Blood Count 4.43 MC/CUMM (3.8-5.5); Red Cell Distribution Width 13.5 % (9.3-17.3); White Blood Count 9.8 T/CUMM (4-12)
[2019-04-28] MEDS ORDERED: methylPREDNISolone SOD SUC 125 MG/2 ML VIAL ONE (03:34)
[2019-04-28] MEDS ORDERED: methylPREDNISolone SOD SUC 125 MG/2 ML VIAL IV STA (03:43)
[2019-04-28 04:20] LABS: Platelet Estimate Adequate
[2019-04-28 04:22] LABS: Polychromasia Slight
[2019-04-28] MEDS ORDERED: FUROSEMIDE 40 MG/4 ML VIAL IV SCH (08:00)
[2019-04-28] MEDS: ALBUTEROL/IPRATROPIUM 3 ML NEB RESP TX SCH ×5 (08:20→23:49)
[2019-04-28] MEDS ORDERED: DEXTROSE 50% 25 GM/50 ML VIAL IV PRN (09:16)
[2019-04-28] MEDS ORDERED: DEXTROSE 5% NACL 0.9% 1,000 ML IV SCH (09:30)
[2019-04-28] MEDS: PANTOPRAZOLE 40 MG TABLET PO SCH (10:06)
[2019-04-28] MEDS: MAGNESIUM OXIDE 400 MG TABLET PO SCH ×2 (10:06→21:41)
[2019-04-28] MEDS: lisinopriL 5 MG TABLET PO SCH ×2 (10:06→21:41)
[2019-04-28] MEDS: SPIRONOLACTONE 25 MG TABLET PO SCH ×2 (10:07→21:41)
[2019-04-28] MEDS: ENOXAPARIN 40 MG/0.4 ML SYRINGE SUBCUT SCH (10:07)
[2019-04-28] MEDS: carvediloL 6.25 MG TABLET PO SCH ×2 (10:07→18:17)
[2019-04-28] MEDS: MULTIVITAMIN (CENTRUM) TABLET PO SCH (10:07)
[2019-04-28] MEDS: AZITHROMYCIN INJ 500 MG in SODIUM CHLORIDE 0.9% 250 ML IV SCH (10:09)
[2019-04-28] MEDS: methylPREDNISolone SOD SUC 40 MG/1 ML VIAL IV SCH ×2 (12:51→21:41)
[2019-04-28] MEDS: ONDANSETRON 4 MG/2 ML VIAL IV PRN (22:16)
[2019-04-29] MEDS ORDERED: ACETAMINOPHEN 325 MG TABLET PO ONE (02:19)
[2019-04-29] MEDS: ALBUTEROL/IPRATROPIUM 3 ML NEB RESP TX SCH ×6 (03:51→23:32)
[2019-04-29] MEDS: methylPREDNISolone SOD SUC 40 MG/1 ML VIAL IV SCH ×3 (05:34→20:31)
[2019-04-29] MEDS: AZITHROMYCIN INJ 500 MG in SODIUM CHLORIDE 0.9% 250 ML IV SCH (05:35)
[2019-04-29 05:52] LABS: Basophils % 0.1 % (0.0-0.8); Hematocrit 35.8 VOL% (35.7-47.0); Immature Granulocytes % 0.4 %; Immature Granulocytes Absolute 0.05 #; Lymphocytes # 0.5 10*3/uL (1.4-4.0); Mean Corpuscular HGB Conc 33.5 GM/DL (32-36); Mean Corpuscular Volume 100.3 FL (87-102); Mean Platelet Volume 9.3 FL (9.6-12.0); Monocytes % 5.1 % (1.7-12.7); Neutrophils % 90.4 % (38.7-73.9); Platelet Count 278 T/CUMM (130-400); Red Blood Count 3.57 MC/CUMM (3.8-5.5); Red Cell Distribution Width 13.2 % (9.3-17.3); White Blood Count 12.4 T/CUMM (4-12)
[2019-04-29 06:31] LABS: Hypochromasia 1+; Lymphocytes 3 % (20-55); Microcytosis 1+; Platelet Estimate Normal; Segmented Neutrophils 97 % (50-85); Total Cells Counted 100
[2019-04-29 06:32] LABS: Osmolality,Calculated 263.9 MOS/KG (273-304); Risk Ratio 1.67; VLDL CHOLESTEROL 19.8 MG/DL
[2019-04-29] MEDS: ONDANSETRON 4 MG/2 ML VIAL IV PRN (06:43)
[2019-04-29] MEDS: PANTOPRAZOLE 40 MG TABLET PO SCH (09:10)
[2019-04-29] MEDS: MULTIVITAMIN (CENTRUM) TABLET PO SCH (09:11)
[2019-04-29] MEDS: MAGNESIUM OXIDE 400 MG TABLET PO SCH ×2 (09:11→20:30)
[2019-04-29] MEDS: SPIRONOLACTONE 25 MG TABLET PO SCH ×2 (09:11→20:30)
[2019-04-29] MEDS: carvediloL 6.25 MG TABLET PO SCH ×2 (09:11→17:14)
[2019-04-29] MEDS: ENOXAPARIN 40 MG/0.4 ML SYRINGE SUBCUT SCH (09:15)
[2019-04-29] MEDS: lisinopriL 5 MG TABLET PO SCH ×2 (09:22→20:30)
[2019-04-29] MEDS: HydrOXYzine PAMOATE 25 MG CAPSULE PO PRN ×2 (10:56→19:50)
[2019-04-29 14:33] LABS: Apearance,Urine CLEAR (Clear); Bilirubin,Urine Negative (Negative); Blood, Urine Negative (Negative); Glucose,Urine (UA) Negative (Negative); Ketones,Urine Negative (Negative); Nitrite,Urine Negative (Negative); Protein,Urine Negative; RBC,Urine <1 /HPF (0-4); Squamous Epithelial Cell,Urine Occasional /HPF (0-10); Urine Color Straw (Yellow); Urine Specific Gravity 1.006 (1.001-1.035); Urine Urobilinogen < 2.0 EU/DL (0.2-1.0); WBC,Urine 1 /HPF (0-6)
[2019-04-29] MEDS: ACETAMINOPHEN 325 MG TABLET PO PRN (20:30)
[2019-04-30] MEDS: ALBUTEROL/IPRATROPIUM 3 ML NEB RESP TX SCH ×5 (03:06→19:28)
[2019-04-30] MEDS: methylPREDNISolone SOD SUC 40 MG/1 ML VIAL IV SCH ×2 (04:30→11:57)
[2019-04-30] MEDS: AZITHROMYCIN INJ 500 MG in SODIUM CHLORIDE 0.9% 250 ML IV SCH (06:40)
[2019-04-30] MEDS ORDERED: glipiZIDE 5 MG TABLET PO SCH (07:30)
[2019-04-30] MEDS: MULTIVITAMIN (CENTRUM) TABLET PO SCH (09:03)
[2019-04-30] MEDS: lisinopriL 5 MG TABLET PO SCH ×2 (09:03→20:47)
[2019-04-30] MEDS: MAGNESIUM OXIDE 400 MG TABLET PO SCH ×2 (09:03→20:48)
[2019-04-30] MEDS: ENOXAPARIN 40 MG/0.4 ML SYRINGE SUBCUT SCH (09:04)
[2019-04-30] MEDS: carvediloL 6.25 MG TABLET PO SCH ×2 (09:04→16:01)
[2019-04-30] MEDS: PANTOPRAZOLE 40 MG TABLET PO SCH (09:04)
[2019-04-30] MEDS: SPIRONOLACTONE 25 MG TABLET PO SCH ×2 (09:04→20:48)
[2019-04-30] MEDS: HydrOXYzine PAMOATE 25 MG CAPSULE PO PRN ×3 (09:11→20:48)
[2019-04-30] MEDS: ACETAMINOPHEN 325 MG TABLET PO PRN ×2 (09:11→20:53)
[2019-04-30] MEDS: GLUCAGON 1 MG VIAL IM PRN ×2 (14:03→17:58)
[2019-04-30] MEDS: AZITHROMYCIN 250 MG TABLET PO SCH (16:01)
[2019-04-30] MEDS: predniSONE 20 MG TABLET PO SCH ×2 (16:01→20:47)
[2019-04-30 16:16] LABS: Basophils % 0.2 % (0.0-0.8); Hematocrit 42.6 VOL% (35.7-47.0); Hemoglobin 14.2 GM/DL (12.0-16.0); Immature Granulocytes % 0.8 %; Immature Granulocytes Absolute 0.17 #; Lymphocytes # 1.1 10*3/uL (1.4-4.0); Lymphocytes % 5.1 % (21.3-54.2); Mean Corpuscular HGB Conc 33.3 GM/DL (32-36); Mean Corpuscular Volume 102.7 FL (87-102); Mean Platelet Volume 10.6 FL (9.6-12.0); Monocytes % 8.3 % (1.7-12.7); Neutrophils % 85.6 % (38.7-73.9); Red Blood Count 4.15 MC/CUMM (3.8-5.5); Red Cell Distribution Width 13.7 % (9.3-17.3); White Blood Count 21.7 T/CUMM (4-12)
[2019-04-30 16:19] LABS: Platelet Count 217 T/CUMM (130-400)
[2019-04-30 16:23] LABS: Lymphocytes 7 % (20-55); Segmented Neutrophils 86 % (50-85); Total Cells Counted 100
[2019-04-30 16:25] LABS: Hypochromasia Slight; Microcytosis Slight; Platelet Estimate Adequate
[2019-04-30] MEDS ORDERED: GLUCAGON 1 MG VIAL IV ONE (16:30)
[2019-04-30 17:38] LABS: Alanine Aminotransferase 26 U/L (13-56); Albumin 3.3 G/DL (3.4-5.0); Alkaline Phosphatase 123 U/L (45-117); Aspartate Amino Transferase 12 U/L (0-37); Bilirubin,Total < 0.39 MG/DL (0.2-1.0); Blood Urea Nitrogen 20 MG/DL (7-18); Calcium 8.6 MG/DL (8.5-10.1); Estimated Glom Filtration Rate 102 ML/MIN; Glucose 56 MG/DL (74-106); Osmolality,Calculated 266.4 MOS/KG (273-304); Total Protein 6.8 G/DL (6.4-8.3)
[2019-05-01] MEDS: ALBUTEROL/IPRATROPIUM 3 ML NEB RESP TX SCH ×5 (00:38→14:52)
[2019-05-01] MEDS: HydrOXYzine PAMOATE 25 MG CAPSULE PO PRN ×3 (02:40→17:46)
[2019-05-01] MEDS: MAGNESIUM OXIDE 400 MG TABLET PO SCH (08:48)
[2019-05-01] MEDS: MULTIVITAMIN (CENTRUM) TABLET PO SCH (08:48)
[2019-05-01] MEDS: PANTOPRAZOLE 40 MG TABLET PO SCH (08:48)
[2019-05-01] MEDS: carvediloL 6.25 MG TABLET PO SCH ×2 (08:48→17:46)
[2019-05-01] MEDS: predniSONE 20 MG TABLET PO SCH (08:48)
[2019-05-01] MEDS: lisinopriL 5 MG TABLET PO SCH (08:48)
[2019-05-01] MEDS: SPIRONOLACTONE 25 MG TABLET PO SCH (08:49)
[2019-05-01] MEDS: AZITHROMYCIN 250 MG TABLET PO SCH (08:49)
[2019-05-01] MEDS: ENOXAPARIN 40 MG/0.4 ML SYRINGE SUBCUT SCH (08:49)
[2019-05-01] MEDS: ACETAMINOPHEN 325 MG TABLET PO PRN ×2 (13:20→18:08)
[2019-05-01 17:01] VITALS: BP 137/83
== END 2019-05-01 18:21 | disposition home or self-care (01) ==
LOC: EDUNIT# → N.ED 01:35 → SUATTDRO 05:07 → N.EDINP 05:07 → INTOOBSV 05:07 → N.TELES 05:34
PROVIDERS: ADMIT Internal Medicine Cardiovascular Disease; ATTEND Internal Medicine

== ENCOUNTER 2019-05-02 12:12 | Observation (INO) ==
[2019-05-02] MEDS ORDERED: ALBUTEROL 2.5 MG/3 ML NEB RESP TX STA (12:30)
[2019-05-02] MEDS ORDERED: FUROSEMIDE 40 MG/4 ML VIAL IV STA (12:42)
[2019-05-02 12:56] LABS: ABG Base Excess 5.8 MMOL/L (-2.5-2.5); ABG HCO3 29.5 MMOL/L (20-26); ABG Oxygen Saturation 92.1 % (95-100); ABG PCO2 51.6 MM HG (35-48); ABG PH 7.402 (7.35-7.45); ABG PO2 66.3 MM HG (80-95); ABG TCO2 27.7 MMOL/L (23-27)
[2019-05-02 13:11] LABS: Apearance,Urine CLEAR (Clear); Bilirubin,Urine Negative (Negative); Blood, Urine Negative (Negative); Glucose,Urine (UA) Negative (Negative); Ketones,Urine Negative (Negative); Nitrite,Urine Negative (Negative); Protein,Urine Negative; RBC,Urine 1 /HPF (0-4); Urine Color Straw (Yellow); Urine Specific Gravity 1.004 (1.001-1.035); Urine Urobilinogen < 2.0 EU/DL (0.2-1.0); WBC,Urine 1 /HPF (0-6)
[2019-05-02 13:17] LABS: Barbiturates Screen,Urine Negative (Negative); Benzodiazepines Screen,Urine Negative (Negative); Cannabinoid Screen,Urine Negative (Negative); Opiate Screen,Urine Negative (Negative); Phencyclidine Screen,Urine Negative (Negative)
[2019-05-02 13:42] LABS: Basophils % 0.1 % (0.0-0.8); Eosinophils % 0.2 % (0.00-10.9); Hematocrit 40.2 VOL% (35.7-47.0); Immature Granulocytes % 1.1 %; Immature Granulocytes Absolute 0.15 #; Lymphocytes # 2.6 10*3/uL (1.4-4.0); Lymphocytes % 18.6 % (21.3-54.2); Mean Corpuscular HGB Conc 34.8 GM/DL (32-36); Mean Corpuscular Volume 98.8 FL (87-102); Mean Platelet Volume 9.4 FL (9.6-12.0); Monocytes % 8.7 % (1.7-12.7); Neutrophils % 71.3 % (38.7-73.9); Platelet Count 330 T/CUMM (130-400); Red Blood Count 4.07 MC/CUMM (3.8-5.5); Red Cell Distribution Width 13.4 % (9.3-17.3)
[2019-05-02 14:36] LABS: Albumin 3.2 G/DL (3.4-5.0); Bilirubin,Total 0.5 MG/DL (0.2-1.0); Calcium 8.9 MG/DL (8.5-10.1); Osmolality,Calculated 255.9 MOS/KG (273-304); Total Protein 6.6 G/DL (6.4-8.3)
[2019-05-02] MEDS ORDERED: ACETAMINOPHEN 325 MG TABLET PO PRN (16:12)
[2019-05-02] MEDS ORDERED: ONDANSETRON 4 MG/2 ML VIAL IV PRN (16:12)
[2019-05-02] MEDS ORDERED: ALBUTEROL 2.5 MG/3 ML NEB RESP TX PRN ×2 (16:16→19:00)
[2019-05-02] MEDS ORDERED: GLUCAGON 1 MG VIAL IM PRN (16:19)
[2019-05-02] MEDS ORDERED: DEXTROSE 10% 25 GM/250 ML BAG IV PRN (16:19)
[2019-05-02] MEDS: ENOXAPARIN 40 MG/0.4 ML SYRINGE SUBCUT SCH (18:13)
[2019-05-02] MEDS: ALBUTEROL/IPRATROPIUM 3 ML NEB RESP TX SCH (20:35)
[2019-05-02] MEDS: LISINOPRIL 5 MG TABLET PO SCH (22:12)
[2019-05-02] MEDS: predniSONE 20 MG TABLET PO SCH (22:13)
[2019-05-02] MEDS: HydrOXYzine PAMOATE 25 MG CAPSULE PO PRN (22:13)
[2019-05-02] MEDS: SPIRONOLACTONE 25 MG TABLET PO SCH (22:13)
[2019-05-03] MEDS: ALBUTEROL/IPRATROPIUM 3 ML NEB RESP TX SCH ×5 (00:15→15:09)
[2019-05-03] MEDS: HydrOXYzine PAMOATE 25 MG CAPSULE PO PRN (02:37)
[2019-05-03 05:40] LABS: Basophils % 0.2 % (0.0-0.8); Eosinophils % 0.4 % (0.00-10.9); Hemoglobin 14.1 GM/DL (12.0-16.0); Lymphocytes # 1.3 10*3/uL (1.4-4.0); Lymphocytes % 12.6 % (21.3-54.2); Mean Corpuscular HGB Conc 34.4 GM/DL (32-36); Mean Corpuscular Volume 98.6 FL (87-102); Monocytes % 9.2 % (1.7-12.7); Neutrophils % 76.6 % (38.7-73.9); Platelet Count 326 T/CUMM (130-400); Red Blood Count 4.16 MC/CUMM (3.8-5.5); Red Cell Distribution Width 13.3 % (9.3-17.3)
[2019-05-03 06:05] LABS: Calcium 8.7 MG/DL (8.5-10.1); Osmolality,Calculated 268.4 MOS/KG (273-304)
[2019-05-03] MEDS ORDERED: MAGNESIUM SULF RIDER 2 GM in PREMIX 1 EACH IV PRN (07:42)
[2019-05-03] MEDS ORDERED: MAGNESIUM SULF RIDER 4 GM in PREMIX 1 EACH IV PRN (07:42)
[2019-05-03] MEDS ORDERED: METHOCARBAMOL 500 MG TABLET PO PRN (08:57)
[2019-05-03] MEDS ORDERED: MAGNESIUM OXIDE 400 MG TABLET PO ONE (08:57)
[2019-05-03] MEDS ORDERED: THIAMINE 100 MG TABLET PO SCH (09:00)
[2019-05-03] MEDS ORDERED: AZITHROMYCIN 250 MG TABLET PO SCH (09:00)
[2019-05-03] MEDS ORDERED: MULTIVITAMIN (CENTRUM) TABLET PO SCH (09:00)
[2019-05-03] MEDS ORDERED: PANTOPRAZOLE 40 MG TABLET PO SCH (09:00)
[2019-05-03] MEDS: FUROSEMIDE 40 MG/4 ML VIAL IV SCH ×2 (09:46→15:36)
[2019-05-03] MEDS: SPIRONOLACTONE 25 MG TABLET PO SCH (09:46)
[2019-05-03] MEDS: LISINOPRIL 5 MG TABLET PO SCH (09:46)
[2019-05-03] MEDS: predniSONE 20 MG TABLET PO SCH (09:47)
[2019-05-03 17:24] VITALS: BP 137/85
[2019-05-03] MEDS: ENOXAPARIN 40 MG/0.4 ML SYRINGE SUBCUT SCH (17:39)
== END 2019-05-03 18:16 | disposition home or self-care (01) ==
LOC: EDUNIT# → EDBD → N.EDINP 12:12 → N.ED 12:12 → N.5E 16:39
PROVIDERS: ADMIT Internal Medicine; ATTEND Internal Medicine

== ENCOUNTER 2019-05-18 04:59 | Observation (INO) ==
[2019-05-18] MEDS ORDERED: ACETAMINOPHEN 325 MG TABLET PO PRN (08:23)
[2019-05-18] MEDS ORDERED: ALBUTEROL/IPRATROPIUM 3 ML NEB RESP TX ONE (08:24)
[2019-05-18 09:27] LABS: Basophils % 0.2 % (0.0-0.8); Hematocrit 38.8 VOL% (35.7-47.0); Hemoglobin 12.9 GM/DL (12.0-16.0); Immature Granulocytes % 0.3 %; Immature Granulocytes Absolute 0.02 #; Lymphocytes % 14.6 % (21.3-54.2); Mean Corpuscular HGB Conc 33.2 GM/DL (32-36); Mean Corpuscular Volume 101.6 FL (87-102); Mean Platelet Volume 9.6 FL (9.6-12.0); Monocytes % 12.4 % (1.7-12.7); Neutrophils % 72.5 % (38.7-73.9); Platelet Count 259 T/CUMM (130-400); Red Blood Count 3.82 MC/CUMM (3.8-5.5); White Blood Count 6.6 T/CUMM (4-12)
[2019-05-18 09:51] LABS: Albumin 3.6 G/DL (3.4-5.0); Bilirubin,Total 0.8 MG/DL (0.2-1.0); Calcium 8.7 MG/DL (8.5-10.1); Osmolality,Calculated 267.1 MOS/KG (273-304); Total Protein 7.1 G/DL (6.4-8.3)
[2019-05-18] MEDS: predniSONE 20 MG TABLET PO SCH (10:46)
[2019-05-18] MEDS: PANTOPRAZOLE 40 MG TABLET PO SCH (10:46)
[2019-05-18] MEDS: ONDANSETRON 4 MG/2 ML VIAL IV PRN (11:46)
[2019-05-18] MEDS: NICOTINE 14 MG/24 HR PATCH TRANSDERM SCH ×2 (16:11→16:14)
[2019-05-18] MEDS: FUROSEMIDE 40 MG/4 ML VIAL IV SCH (16:11)
[2019-05-18 20:04] LABS: Apearance,Urine CLEAR (Clear); Bacteria,Urine Occasional /HPF (Few); Bilirubin,Urine Negative (Negative); Blood, Urine Negative (Negative); Glucose,Urine (UA) Negative (Negative); Ketones,Urine Negative (Negative); Mucus,Urine Occasional /LPF (Occasional); Nitrite,Urine Negative (Negative); Protein,Urine 30 MG/DL; RBC,Urine 2 /HPF (0-4); Squamous Epithelial Cell,Urine Occasional /HPF (0-10); Urine Color Straw (Yellow); Urine Specific Gravity 1.004 (1.001-1.035); Urine Urobilinogen < 2.0 EU/DL (0.2-1.0); WBC,Urine <1 /HPF (0-6)
[2019-05-18 21:21] LABS: Barbiturates Screen,Urine Negative (Negative); Benzodiazepines Screen,Urine Negative (Negative); Cannabinoid Screen,Urine Negative (Negative); Opiate Screen,Urine Negative (Negative); Phencyclidine Screen,Urine Negative (Negative)
[2019-05-19] MEDS: ALBUTEROL/IPRATROPIUM 3 ML NEB RESP TX PRN ×2 (01:15→06:00)
[2019-05-19] MEDS: ONDANSETRON 4 MG/2 ML VIAL IV PRN (04:28)
[2019-05-19 06:29] LABS: Basophils % 0.2 % (0.0-0.8); Eosinophils % 0.3 % (0.00-10.9); Hematocrit 37.5 VOL% (35.7-47.0); Hemoglobin 12.3 GM/DL (12.0-16.0); Immature Granulocytes % 0.5 %; Immature Granulocytes Absolute 0.03 #; Lymphocytes # 1.6 10*3/uL (1.4-4.0); Lymphocytes % 25.2 % (21.3-54.2); Mean Corpuscular HGB Conc 32.8 GM/DL (32-36); Mean Corpuscular Volume 102.5 FL (87-102); Mean Platelet Volume 10.3 FL (9.6-12.0); Monocytes % 15.4 % (1.7-12.7); Neutrophils % 58.4 % (38.7-73.9); Platelet Count 254 T/CUMM (130-400); Red Blood Count 3.66 MC/CUMM (3.8-5.5); Red Cell Distribution Width 14.9 % (9.3-17.3); White Blood Count 6.2 T/CUMM (4-12)
[2019-05-19 06:41] LABS: Calcium 8.6 MG/DL (8.5-10.1); Osmolality,Calculated 262.5 MOS/KG (273-304)
[2019-05-19] MEDS ORDERED: predniSONE 10 MG TABLET ONE (08:25)
[2019-05-19] MEDS ORDERED: MAGNESIUM SULF RIDER 4 GM in PREMIX 1 EACH IV PRN (08:35)
[2019-05-19] MEDS ORDERED: MAGNESIUM SULF RIDER 2 GM in PREMIX 1 EACH IV PRN (08:35)
[2019-05-19] MEDS: FUROSEMIDE 40 MG/4 ML VIAL IV SCH (09:11)
[2019-05-19] MEDS: NICOTINE 14 MG/24 HR PATCH TRANSDERM SCH (09:12)
[2019-05-19] MEDS: PANTOPRAZOLE 40 MG TABLET PO SCH (09:12)
[2019-05-19] MEDS: predniSONE 20 MG TABLET PO SCH (09:12)
[2019-05-19 12:36] VITALS: BP 126/82
== END 2019-05-19 15:22 | disposition home or self-care (01) ==
LOC: SUATTDRO 05:11 → N.5E 05:11 → SUATTDRO 05:45 → INTOOBSV 05:45 → N.5E 05:59
PROVIDERS: ADMIT Internal Medicine; ATTEND Internal Medicine

== ENCOUNTER 2019-06-08 05:01 | Observation (INO) ==
[2019-06-08] MEDS ORDERED: ALBUTEROL NEB SOLN 5 MG/ML 20 ML/BOTTLE RESP TX SCH (06:30)
[2019-06-08 06:37] LABS: Apearance,Urine CLEAR (Clear); Bilirubin,Urine Negative (Negative); Blood, Urine Negative (Negative); Glucose,Urine (UA) Negative (Negative); Ketones,Urine Negative (Negative); Mucus,Urine Occasional /LPF (Occasional); Nitrite,Urine Negative (Negative); Protein,Urine 30 MG/DL; RBC,Urine 6 /HPF (0-4); Squamous Epithelial Cell,Urine Occasional /HPF (0-10); Urine Color Yellow (Yellow); Urine Specific Gravity 1.004 (1.001-1.035); Urine Urobilinogen < 2.0 EU/DL (0.2-1.0); WBC,Urine 2 /HPF (0-6)
[2019-06-08 06:43] LABS: Barbiturates Screen,Urine Negative (Negative); Benzodiazepines Screen,Urine Negative (Negative); Cannabinoid Screen,Urine Positive (Negative); Opiate Screen,Urine Negative (Negative); Phencyclidine Screen,Urine Negative (Negative)
[2019-06-08 06:45] LABS: Basophils % 0.3 % (0.0-0.8); Eosinophils % 0.4 % (0.00-10.9); Hematocrit 43.1 VOL% (35.7-47.0); Hemoglobin 14.3 GM/DL (12.0-16.0); Immature Granulocytes % 0.6 %; Immature Granulocytes Absolute 0.04 #; Lymphocytes # 1.3 10*3/uL (1.4-4.0); Lymphocytes % 18.5 % (21.3-54.2); Mean Corpuscular HGB Conc 33.2 GM/DL (32-36); Mean Corpuscular Volume 99.1 FL (87-102); Neutrophils % 68.2 % (38.7-73.9); Platelet Count 252 T/CUMM (130-400); Red Blood Count 4.35 MC/CUMM (3.8-5.5); Red Cell Distribution Width 14.8 % (9.3-17.3); White Blood Count 7.3 T/CUMM (4-12)
[2019-06-08 06:58] LABS: Albumin 3.3 G/DL (3.4-5.0); Bilirubin,Total 1.2 MG/DL (0.2-1.0); Calcium 8.9 MG/DL (8.5-10.1); Osmolality,Calculated 262.4 MOS/KG (273-304); Total Protein 6.5 G/DL (6.4-8.3)
[2019-06-08] MEDS ORDERED: FUROSEMIDE 40 MG/4 ML VIAL IV STA (07:56)
[2019-06-08] MEDS ORDERED: guaiFENesin/DM ER 600-30 MG TABLET PO PRN (09:05)
[2019-06-08] MEDS ORDERED: ONDANSETRON 4 MG/2 ML VIAL IV PRN (09:05)
[2019-06-08] MEDS ORDERED: ACETAMINOPHEN 325 MG TABLET PO PRN (09:05)
[2019-06-08] MEDS: ENOXAPARIN 40 MG/0.4 ML SYRINGE SUBCUT SCH (09:34)
[2019-06-08] MEDS: methylPREDNISolone SOD SUC 40 MG/1 ML VIAL IV SCH ×2 (09:34→21:18)
[2019-06-08] MEDS ORDERED: TUBERCULIN SKIN TEST 0.1 ML SYRINGE INTRADERM ONE (12:51)
[2019-06-08] MEDS: chlordiazePOXIDE 25 MG CAPSULE PO PRN ×2 (13:35→21:18)
[2019-06-08] MEDS: FUROSEMIDE 40 MG TABLET PO SCH (16:12)
[2019-06-08] MEDS: ALBUTEROL/IPRATROPIUM 3 ML NEB RESP TX SCH ×2 (17:35→20:50)
[2019-06-08] MEDS: LISINOPRIL 5 MG TABLET PO SCH (21:18)
[2019-06-09] MEDS: ALBUTEROL/IPRATROPIUM 3 ML NEB RESP TX SCH ×4 (00:52→21:01)
[2019-06-09 06:55] LABS: Hematocrit 45.5 VOL% (35.7-47.0); Hemoglobin 15.6 GM/DL (12.0-16.0); Immature Granulocytes % 0.2 %; Immature Granulocytes Absolute 0.01 #; Lymphocytes # 0.5 10*3/uL (1.4-4.0); Lymphocytes % 9.3 % (21.3-54.2); Mean Corpuscular HGB Conc 34.3 GM/DL (32-36); Mean Platelet Volume 10.4 FL (9.6-12.0); Monocytes % 6.4 % (1.7-12.7); Neutrophils % 84.1 % (38.7-73.9); Platelet Count 276 T/CUMM (130-400); Red Blood Count 4.69 MC/CUMM (3.8-5.5); Red Cell Distribution Width 14.3 % (9.3-17.3); White Blood Count 4.8 T/CUMM (4-12)
[2019-06-09 07:26] LABS: Calcium 7.8 MG/DL (8.5-10.1); Osmolality,Calculated 263.7 MOS/KG (273-304)
[2019-06-09] MEDS: ENOXAPARIN 40 MG/0.4 ML SYRINGE SUBCUT SCH (09:06)
[2019-06-09] MEDS: FUROSEMIDE 40 MG TABLET PO SCH ×2 (09:06→18:17)
[2019-06-09] MEDS: PANTOPRAZOLE 40 MG TABLET PO SCH (09:06)
[2019-06-09] MEDS: LISINOPRIL 5 MG TABLET PO SCH ×2 (09:06→21:23)
[2019-06-09] MEDS: methylPREDNISolone SOD SUC 40 MG/1 ML VIAL IV SCH ×2 (09:06→21:23)
[2019-06-09] MEDS: chlordiazePOXIDE 25 MG CAPSULE PO PRN ×2 (10:22→21:23)
[2019-06-09] MEDS: POTASSIUM CHLORIDE 20 MEQ TABLET PO PRN ×3 (14:27→21:23)
[2019-06-10] MEDS: ALBUTEROL/IPRATROPIUM 3 ML NEB RESP TX SCH ×2 (01:20→07:02)
[2019-06-10] MEDS: POTASSIUM CHLORIDE 20 MEQ TABLET PO PRN (02:41)
[2019-06-10 07:33] LABS: Calcium 7.6 MG/DL (8.5-10.1); Osmolality,Calculated 264.5 MOS/KG (273-304)
[2019-06-10] MEDS: FUROSEMIDE 40 MG TABLET PO SCH (08:57)
[2019-06-10] MEDS: methylPREDNISolone SOD SUC 40 MG/1 ML VIAL IV SCH (08:57)
[2019-06-10] MEDS: LISINOPRIL 5 MG TABLET PO SCH (08:57)
[2019-06-10] MEDS: PANTOPRAZOLE 40 MG TABLET PO SCH (08:57)
[2019-06-10] MEDS: chlordiazePOXIDE 25 MG CAPSULE PO PRN (09:06)
[2019-06-10] MEDS: ENOXAPARIN 40 MG/0.4 ML SYRINGE SUBCUT SCH (09:15)
[2019-06-10 12:21] VITALS: BP 126/72
== END 2019-06-10 12:36 | disposition home or self-care (01) ==
LOC: N.ED 05:01 → N.EDINP 05:01 → N.2E 10:11
PROVIDERS: ADMIT Internal Medicine Geriatric Medicine; ATTEND Internal Medicine Geriatric Medicine

== ENCOUNTER 2019-07-12 10:45 | Observation (INO) ==
[2019-07-12] MEDS ORDERED: ALBUTEROL 2.5 MG/3 ML NEB RESP TX STA (11:03)
[2019-07-12] MEDS ORDERED: methylPREDNISolone SOD SUC 125 MG/2 ML VIAL IV STA (11:03)
[2019-07-12] MEDS ORDERED: FUROSEMIDE 100 MG/10 ML VIAL IV STA (11:03)
[2019-07-12 12:11] LABS: ABG Base Excess 2.3 MMOL/L (-2.5-2.5); ABG HCO3 26.1 MMOL/L (20-26); ABG Oxygen Saturation 83.5 % (95-100); ABG PCO2 51.3 MM HG (35-48); ABG PH 7.356 (7.35-7.45); ABG TCO2 25.8 MMOL/L (23-27)
[2019-07-12 12:15] LABS: Apearance,Urine Slightly Hazy (Clear); Bacteria,Urine Occasional /HPF (Few); Bilirubin,Urine Negative (Negative); Blood, Urine Small mg/dL (Negative); Glucose,Urine (UA) Negative (Negative); Ketones,Urine Negative (Negative); Mucus,Urine Occasional /LPF (Occasional); Nitrite,Urine Negative (Negative); Protein,Urine 100 MG/DL; RBC,Urine 2 /HPF (0-4); Squamous Epithelial Cell,Urine Occasional /HPF (0-10); Urine Color Yellow (Yellow); Urine Specific Gravity 1.005 (1.001-1.035); Urine Urobilinogen < 2.0 EU/DL (0.2-1.0); WBC,Urine 1 /HPF (0-6)
[2019-07-12 12:20] LABS: Basophils # 0.1 10*3/uL (0.0-0.2); Basophils % 0.6 % (0.0-0.8); Eosinophils % 0.1 % (0.00-10.9); Hematocrit 41.5 VOL% (35.7-47.0); Hemoglobin 13.4 GM/DL (12.0-16.0); Immature Granulocytes % 1.6 %; Immature Granulocytes Absolute 0.13 #; Lymphocytes # 0.9 10*3/uL (1.4-4.0); Lymphocytes % 11.4 % (21.3-54.2); Mean Corpuscular HGB Conc 32.3 GM/DL (32-36); Mean Corpuscular Volume 95.8 FL (87-102); Mean Platelet Volume 10.7 FL (9.6-12.0); Monocytes % 8.8 % (1.7-12.7); Neutrophils % 77.5 % (38.7-73.9); Platelet Count 319 T/CUMM (130-400); Red Blood Count 4.33 MC/CUMM (3.8-5.5); Red Cell Distribution Width 14.9 % (9.3-17.3)
[2019-07-12 12:32] LABS: Barbiturates Screen,Urine Negative (Negative); Benzodiazepines Screen,Urine Negative (Negative); Cannabinoid Screen,Urine Negative (Negative); Opiate Screen,Urine Negative (Negative); Phencyclidine Screen,Urine Negative (Negative)
[2019-07-12 12:36] LABS: INR 1.2; PT Patient Result 12.6 SECS (9.6-12.2); Partial Thromboplastin Time 24.3 SECS (20.8-36.0)
[2019-07-12 13:03] LABS: Albumin 3.5 G/DL (3.4-5.0); Bilirubin,Total 1.3 MG/DL (0.2-1.0); Calcium 8.5 MG/DL (8.5-10.1); Osmolality,Calculated 273.5 MOS/KG (273-304); Total Protein 7.4 G/DL (6.4-8.3)
[2019-07-12] MEDS ORDERED: NICOTINE 21 MG/24 HR PATCH TRANSDERM PRN (13:07)
[2019-07-12] MEDS ORDERED: MAGNESIUM SULF RIDER 2 GM in PREMIX 1 EACH IV PRN (13:07)
[2019-07-12] MEDS ORDERED: MAGNESIUM SULF RIDER 4 GM in PREMIX 1 EACH IV PRN (13:07)
[2019-07-12] MEDS ORDERED: ACETAMINOPHEN 325 MG TABLET PO PRN (13:07)
[2019-07-12] MEDS ORDERED: BISACODYL 5 MG TABLET PO PRN (13:07)
[2019-07-12] MEDS ORDERED: guaiFENesin/DM ER 600-30 MG TABLET PO PRN (13:07)
[2019-07-12] MEDS ORDERED: LORazepam 2 MG/1 ML VIAL IV PRN (15:00)
[2019-07-12] MEDS: methylPREDNISolone SOD SUC 40 MG/1 ML VIAL IV SCH ×2 (15:03→17:11)
[2019-07-12] MEDS: ENOXAPARIN 40 MG/0.4 ML SYRINGE SUBCUT SCH ×2 (17:11→17:40)
[2019-07-12] MEDS: LEVOFLOXACIN INJ 500 MG in PREMIX 1 EACH IV SCH (17:12)
[2019-07-12] MEDS: FOLIC ACID 1 MG TABLET PO SCH (17:12)
[2019-07-12] MEDS: FUROSEMIDE 40 MG/4 ML VIAL IV SCH (17:12)
[2019-07-12] MEDS: MULTIVITAMIN (BEROCCA) TABLET PO SCH (17:12)
[2019-07-12] MEDS: THIAMINE 100 MG TABLET PO SCH (17:13)
[2019-07-12] MEDS: ALBUTEROL/IPRATROPIUM 3 ML NEB RESP TX SCH (19:11)
[2019-07-12] MEDS: POTASSIUM CHLORIDE RIDER 10 MEQ in PREMIX 1 EACH IV PRN ×2 (20:09→21:10)
[2019-07-12] MEDS: ESCITALOPRAM 10 MG TABLET PO SCH (20:09)
[2019-07-13] MEDS: ALBUTEROL/IPRATROPIUM 3 ML NEB RESP TX SCH ×4 (00:18→19:14)
[2019-07-13] MEDS: methylPREDNISolone SOD SUC 40 MG/1 ML VIAL IV SCH (02:08)
[2019-07-13 04:47] LABS: Hematocrit 38.7 VOL% (35.7-47.0); Immature Granulocytes % 0.3 %; Immature Granulocytes Absolute 0.01 #; Lymphocytes # 0.8 10*3/uL (1.4-4.0); Lymphocytes % 20.8 % (21.3-54.2); Mean Corpuscular HGB Conc 33.6 GM/DL (32-36); Mean Corpuscular Volume 92.4 FL (87-102); Mean Platelet Volume 11.3 FL (9.6-12.0); Monocytes % 9.8 % (1.7-12.7); Neutrophils % 69.1 % (38.7-73.9); Platelet Count 292 T/CUMM (130-400); Red Blood Count 4.19 MC/CUMM (3.8-5.5); Red Cell Distribution Width 14.6 % (9.3-17.3); White Blood Count 3.7 T/CUMM (4-12)
[2019-07-13 05:07] LABS: Calcium 8.2 MG/DL (8.5-10.1); Osmolality,Calculated 277.5 MOS/KG (273-304)
[2019-07-13] MEDS: POTASSIUM CHLORIDE RIDER 10 MEQ in PREMIX 1 EACH IV PRN ×6 (05:15→18:21)
[2019-07-13 05:34] LABS: Risk Ratio 2.18; VLDL CHOLESTEROL 17.4 MG/DL
[2019-07-13] MEDS: ATORVASTATIN 40 MG TABLET PO SCH (08:23)
[2019-07-13] MEDS: MULTIVITAMIN (BEROCCA) TABLET PO SCH (08:24)
[2019-07-13] MEDS: LISINOPRIL 10 MG TABLET PO SCH (08:25)
[2019-07-13] MEDS: PANTOPRAZOLE 40 MG TABLET PO SCH (08:25)
[2019-07-13] MEDS: THIAMINE 100 MG TABLET PO SCH (08:25)
[2019-07-13] MEDS: ASPIRIN CHEW 81 MG TABLET PO SCH (08:25)
[2019-07-13] MEDS: FOLIC ACID 1 MG TABLET PO SCH (08:25)
[2019-07-13] MEDS: FUROSEMIDE 40 MG/4 ML VIAL IV SCH ×2 (08:25→15:02)
[2019-07-13] MEDS ORDERED: ERGOCALCIFEROL 50,000 UNIT CAPSULE PO SCH (10:30)
[2019-07-13] MEDS: ENOXAPARIN 40 MG/0.4 ML SYRINGE SUBCUT SCH (12:46)
[2019-07-13] MEDS: LEVOFLOXACIN INJ 500 MG in PREMIX 1 EACH IV SCH (14:52)
[2019-07-13] MEDS: ESCITALOPRAM 10 MG TABLET PO SCH (21:06)
[2019-07-13] MEDS: BUDESONIDE/FORMOTEROL 160-4.5 INHALER 6 GM INH SCH (21:06)
[2019-07-14] MEDS: ALBUTEROL/IPRATROPIUM 3 ML NEB RESP TX SCH ×3 (00:57→13:39)
[2019-07-14] MEDS: POTASSIUM CHLORIDE RIDER 10 MEQ in PREMIX 1 EACH IV PRN ×4 (02:17→06:03)
[2019-07-14 04:43] LABS: Basophils % 0.1 % (0.0-0.8); Hematocrit 37.2 VOL% (35.7-47.0); Hemoglobin 12.5 GM/DL (12.0-16.0); Immature Granulocytes % 0.5 %; Immature Granulocytes Absolute 0.07 #; Lymphocytes # 1.2 10*3/uL (1.4-4.0); Lymphocytes % 8.8 % (21.3-54.2); Mean Corpuscular HGB Conc 33.6 GM/DL (32-36); Mean Corpuscular Volume 92.3 FL (87-102); Mean Platelet Volume 11.3 FL (9.6-12.0); Monocytes % 10.3 % (1.7-12.7); Neutrophils % 80.3 % (38.7-73.9); Platelet Count 260 T/CUMM (130-400); Red Blood Count 4.03 MC/CUMM (3.8-5.5); Red Cell Distribution Width 14.6 % (9.3-17.3); White Blood Count 13.9 T/CUMM (4-12)
[2019-07-14 05:10] LABS: Calcium 8.1 MG/DL (8.5-10.1)
[2019-07-14] MEDS: BUDESONIDE/FORMOTEROL 160-4.5 INHALER 6 GM INH SCH (08:31)
[2019-07-14] MEDS: FUROSEMIDE 40 MG/4 ML VIAL IV SCH (08:32)
[2019-07-14] MEDS: THIAMINE 100 MG TABLET PO SCH (08:34)
[2019-07-14] MEDS: MULTIVITAMIN (BEROCCA) TABLET PO SCH (08:36)
[2019-07-14] MEDS: LISINOPRIL 10 MG TABLET PO SCH (08:36)
[2019-07-14] MEDS: ASPIRIN CHEW 81 MG TABLET PO SCH (08:36)
[2019-07-14] MEDS: FOLIC ACID 1 MG TABLET PO SCH (08:36)
[2019-07-14] MEDS: PANTOPRAZOLE 40 MG TABLET PO SCH (08:36)
[2019-07-14] MEDS: ATORVASTATIN 40 MG TABLET PO SCH (08:36)
[2019-07-14] MEDS ORDERED: predniSONE 20 MG TABLET PO SCH (09:00)
[2019-07-14] MEDS ORDERED: POTASSIUM CHLORIDE 20 MEQ TABLET PO SCH (09:00)
[2019-07-14 12:13] VITALS: BP 126/82
[2019-07-14] MEDS: ENOXAPARIN 40 MG/0.4 ML SYRINGE SUBCUT SCH (13:35)
[2019-07-15] MEDS ORDERED: LEVOFLOXACIN 500 MG TABLET PO SCH (09:00)
[2019-07-15] MEDS ORDERED: FUROSEMIDE 40 MG TABLET PO SCH (09:00)
== END 2019-07-14 15:18 | disposition home health service (06) ==
LOC: EDBD → EDUNIT# → N.ED 10:45 → INTOOBSV 13:07 → N.EDINP 13:07 → N.TELES 14:08
PROVIDERS: ADMIT Internal Medicine; ATTEND Internal Medicine

== ENCOUNTER 2019-07-25 22:00 | Inpatient (IN) ==
[2019-07-25] MEDS ORDERED: LEVOFLOXACIN INJ 750 MG in PREMIX 1 EACH IV STA (23:12)
[2019-07-25] MEDS ORDERED: methylPREDNISolone SOD SUC 125 MG/2 ML VIAL IV STA (23:12)
[2019-07-25] MEDS ORDERED: ONDANSETRON 4 MG/2 ML VIAL IV STA (23:12)
[2019-07-25] MEDS ORDERED: ALBUTEROL NEB SOLN 5 MG/ML 20 ML/BOTTLE RESP TX SCH (23:30)
[2019-07-25 23:57] LABS: Basophils % 0.4 % (0.0-0.8); Eosinophils # 0.1 10*3/uL (0.0-0.87); Eosinophils % 0.6 % (0.00-10.9); Hematocrit 39.3 VOL% (35.7-47.0); Hemoglobin 13.1 GM/DL (12.0-16.0); Immature Granulocytes % 0.3 %; Immature Granulocytes Absolute 0.03 #; Lymphocytes # 2.3 10*3/uL (1.4-4.0); Lymphocytes % 26.1 % (21.3-54.2); Mean Corpuscular HGB Conc 33.3 GM/DL (32-36); Mean Corpuscular Volume 92.5 FL (87-102); Mean Platelet Volume 10.6 FL (9.6-12.0); Monocytes % 6.9 % (1.7-12.7); Neutrophils % 65.7 % (38.7-73.9); Platelet Count 284 T/CUMM (130-400); Red Blood Count 4.25 MC/CUMM (3.8-5.5); Red Cell Distribution Width 15.9 % (9.3-17.3)
[2019-07-26 00:01] LABS: Apearance,Urine CLEAR (Clear); Bacteria,Urine Occasional /HPF (Few); Bilirubin,Urine Negative (Negative); Blood, Urine Small mg/dL (Negative); Glucose,Urine (UA) Negative (Negative); Ketones,Urine Negative (Negative); Nitrite,Urine Negative (Negative); Protein,Urine Negative; RBC,Urine 2 /HPF (0-4); Squamous Epithelial Cell,Urine Occasional /HPF (0-10); Urine Color Straw (Yellow); Urine Specific Gravity 1.002 (1.001-1.035); Urine Urobilinogen < 2.0 EU/DL (0.2-1.0); WBC,Urine <1 /HPF (0-6)
[2019-07-26 00:05] LABS: PT Patient Result 10.9 SECS (9.6-12.2); Partial Thromboplastin Time 26.3 SECS (20.8-36.0)
[2019-07-26 00:17] LABS: Alanine Aminotransferase 31 U/L (13-56); Albumin 3.7 G/DL (3.4-5.0); Alkaline Phosphatase 104 U/L (45-117); Aspartate Amino Transferase 32 U/L (0-37); Blood Urea Nitrogen 8 MG/DL (7-18); Calcium 8.7 MG/DL (8.5-10.1); Estimated Glom Filtration Rate 120 ML/MIN; Glucose 99 MG/DL (74-106); Osmolality,Calculated 265.2 MOS/KG (273-304); Total Protein 7.7 G/DL (6.4-8.3); Troponin I 0.043 NG/ML (0.00-0.045)
[2019-07-26 00:28] LABS: Barbiturates Screen,Urine Negative (Negative); Benzodiazepines Screen,Urine Negative (Negative); Cannabinoid Screen,Urine Negative (Negative); Opiate Screen,Urine Negative (Negative); Phencyclidine Screen,Urine Negative (Negative)
[2019-07-26] MEDS ORDERED: FUROSEMIDE 40 MG/4 ML VIAL IV STA (00:38)
[2019-07-26] MEDS ORDERED: ONDANSETRON 4 MG/2 ML VIAL IV PRN (03:21)
[2019-07-26] MEDS ORDERED: LORazepam 2 MG/1 ML VIAL IV PRN (03:21)
[2019-07-26] MEDS ORDERED: DOCUSATE SODIUM 100 MG CAPSULE PO PRN (03:21)
[2019-07-26] MEDS ORDERED: ALBUTEROL 2.5 MG/3 ML NEB RESP TX PRN (03:33)
[2019-07-26] MEDS ORDERED: INFLUENZA VIRUS VACCINE 0.5 ML SYRINGE IM ONE (05:47)
[2019-07-26 06:57] LABS: Basophils % 0.2 % (0.0-0.8); Hematocrit 38.1 VOL% (35.7-47.0); Hemoglobin 12.7 GM/DL (12.0-16.0); Immature Granulocytes % 0.4 %; Immature Granulocytes Absolute 0.02 #; Lymphocytes # 0.3 10*3/uL (1.4-4.0); Lymphocytes % 7.1 % (21.3-54.2); Mean Corpuscular HGB Conc 33.3 GM/DL (32-36); Mean Platelet Volume 10.4 FL (9.6-12.0); Monocytes % 1.3 % (1.7-12.7); Platelet Count 262 T/CUMM (130-400); Red Blood Count 4.14 MC/CUMM (3.8-5.5); Red Cell Distribution Width 15.6 % (9.3-17.3); White Blood Count 4.5 T/CUMM (4-12)
[2019-07-26 07:26] LABS: Calcium 8.3 MG/DL (8.5-10.1); Lymphocytes 10 % (20-55); Osmolality,Calculated 274.8 MOS/KG (273-304); Segmented Neutrophils 88 % (50-85); Total Cells Counted 100
[2019-07-26 07:27] LABS: Hypochromasia 1+; Microcytosis Slight; Platelet Estimate Normal
[2019-07-26] MEDS ORDERED: POTASSIUM CHLORIDE 20 MEQ TABLET PO PRN (09:00)
[2019-07-26] MEDS ORDERED: POTASSIUM CHLORIDE 20 MEQ/15 ML UDCUP PER TUBE PRN (09:00)
[2019-07-26] MEDS: FUROSEMIDE 40 MG/4 ML VIAL IV SCH ×2 (09:40→16:02)
[2019-07-26] MEDS: THIAMINE 100 MG TABLET PO SCH (09:40)
[2019-07-26] MEDS: FOLIC ACID 1 MG TABLET PO SCH (09:40)
[2019-07-26] MEDS: MULTIVITAMIN (CENTRUM) TABLET PO SCH (09:40)
[2019-07-26] MEDS: BUDESONIDE/FORMOTEROL 160-4.5 INHALER 6 GM INH SCH ×2 (09:40→20:44)
[2019-07-26] MEDS: ASPIRIN 325 MG TABLET PO SCH (09:41)
[2019-07-26] MEDS: ERGOCALCIFEROL 50,000 UNIT CAPSULE PO SCH (09:41)
[2019-07-26] MEDS: LISINOPRIL 10 MG TABLET PO SCH (09:41)
[2019-07-26] MEDS: ATORVASTATIN 40 MG TABLET PO SCH (09:41)
[2019-07-26] MEDS: POTASSIUM CHLORIDE RIDER 10 MEQ in PREMIX 1 EACH IV PRN ×3 (14:46→18:35)
[2019-07-26] MEDS: ALBUTEROL/IPRATROPIUM 3 ML NEB RESP TX PRN (16:00)
[2019-07-26] MEDS: ESCITALOPRAM 10 MG TABLET PO SCH (20:44)
[2019-07-27] MEDS: MULTIVITAMIN (CENTRUM) TABLET PO SCH (10:35)
[2019-07-27] MEDS: ASPIRIN 325 MG TABLET PO SCH (10:35)
[2019-07-27] MEDS: ATORVASTATIN 40 MG TABLET PO SCH (10:35)
[2019-07-27] MEDS: FUROSEMIDE 40 MG/4 ML VIAL IV SCH ×2 (10:35→16:00)
[2019-07-27] MEDS: FOLIC ACID 1 MG TABLET PO SCH (10:35)
[2019-07-27] MEDS: THIAMINE 100 MG TABLET PO SCH (10:35)
[2019-07-27] MEDS: LISINOPRIL 10 MG TABLET PO SCH (10:35)
[2019-07-27] MEDS: BUDESONIDE/FORMOTEROL 160-4.5 INHALER 6 GM INH SCH ×2 (10:39→20:53)
[2019-07-27] MEDS: ALBUTEROL/IPRATROPIUM 3 ML NEB RESP TX PRN (11:14)
[2019-07-27] MEDS ORDERED: LABETALOL 20 MG/4 ML SYRINGE IV PRN (16:40)
[2019-07-27 18:17] LABS: Risk Ratio 1.69; VLDL CHOLESTEROL 14.4 MG/DL
[2019-07-27] MEDS: CLOPIDOGREL 75 MG TABLET PO SCH (18:23)
[2019-07-27] MEDS: ACETAMINOPHEN 325 MG TABLET PO PRN (18:23)
[2019-07-27] MEDS: ENOXAPARIN 30 MG/0.3 ML SYRINGE SUBCUT SCH (20:54)
[2019-07-27] MEDS: ESCITALOPRAM 10 MG TABLET PO SCH (20:54)
[2019-07-27] MEDS: traZODone 50 MG TABLET PO PRN (20:54)
[2019-07-28] MEDS: ALBUTEROL/IPRATROPIUM 3 ML NEB RESP TX PRN ×3 (03:17→18:05)
[2019-07-28 08:53] LABS: Basophils % 0.5 % (0.0-0.8); Eosinophils # 0.1 10*3/uL (0.0-0.87); Hemoglobin 13.5 GM/DL (12.0-16.0); Immature Granulocytes % 0.3 %; Immature Granulocytes Absolute 0.02 #; Lymphocytes # 1.8 10*3/uL (1.4-4.0); Lymphocytes % 28.9 % (21.3-54.2); Mean Corpuscular HGB Conc 33.8 GM/DL (32-36); Mean Corpuscular Volume 92.4 FL (87-102); Mean Platelet Volume 10.5 FL (9.6-12.0); Monocytes % 9.8 % (1.7-12.7); Neutrophils % 59.5 % (38.7-73.9); Platelet Count 263 T/CUMM (130-400); Red Blood Count 4.33 MC/CUMM (3.8-5.5); White Blood Count 6.1 T/CUMM (4-12)
[2019-07-28] MEDS: FUROSEMIDE 40 MG/4 ML VIAL IV SCH (08:55)
[2019-07-28] MEDS: LISINOPRIL 10 MG TABLET PO SCH (08:55)
[2019-07-28] MEDS: CLOPIDOGREL 75 MG TABLET PO SCH (08:55)
[2019-07-28] MEDS: FOLIC ACID 1 MG TABLET PO SCH (08:55)
[2019-07-28] MEDS: ATORVASTATIN 40 MG TABLET PO SCH (08:55)
[2019-07-28] MEDS: THIAMINE 100 MG TABLET PO SCH (08:56)
[2019-07-28] MEDS: ASPIRIN 325 MG TABLET PO SCH (08:56)
[2019-07-28] MEDS: MULTIVITAMIN (CENTRUM) TABLET PO SCH (08:56)
[2019-07-28] MEDS: BUDESONIDE/FORMOTEROL 160-4.5 INHALER 6 GM INH SCH ×2 (08:59→21:32)
[2019-07-28 09:23] LABS: Albumin 3.1 G/DL (3.4-5.0); Bilirubin,Total 0.5 MG/DL (0.2-1.0); Calcium 8.1 MG/DL (8.5-10.1); Osmolality,Calculated 267.4 MOS/KG (273-304); Total Protein 6.2 G/DL (6.4-8.3)
[2019-07-28] MEDS: POTASSIUM CHLORIDE 20 MEQ TABLET PO SCH ×2 (16:56→21:30)
[2019-07-28] MEDS: ESCITALOPRAM 10 MG TABLET PO SCH (21:30)
[2019-07-28] MEDS: traZODone 50 MG TABLET PO PRN (21:30)
[2019-07-28] MEDS: ENOXAPARIN 30 MG/0.3 ML SYRINGE SUBCUT SCH (21:31)
[2019-07-28] MEDS: ACETAMINOPHEN 325 MG TABLET PO PRN (22:43)
[2019-07-29 05:14] LABS: Basophils % 0.5 % (0.0-0.8); Eosinophils # 0.1 10*3/uL (0.0-0.87); Eosinophils % 1.9 % (0.00-10.9); Hematocrit 39.1 VOL% (35.7-47.0); Hemoglobin 13.2 GM/DL (12.0-16.0); Immature Granulocytes % 0.5 %; Immature Granulocytes Absolute 0.03 #; Lymphocytes # 2.3 10*3/uL (1.4-4.0); Lymphocytes % 41.3 % (21.3-54.2); Mean Corpuscular HGB Conc 33.8 GM/DL (32-36); Mean Corpuscular Volume 92.9 FL (87-102); Mean Platelet Volume 10.8 FL (9.6-12.0); Monocytes % 12.4 % (1.7-12.7); Neutrophils % 43.4 % (38.7-73.9); Platelet Count 243 T/CUMM (130-400); Red Blood Count 4.21 MC/CUMM (3.8-5.5); Red Cell Distribution Width 16.3 % (9.3-17.3); White Blood Count 5.7 T/CUMM (4-12)
[2019-07-29 05:40] LABS: Bilirubin,Total 0.5 MG/DL (0.2-1.0); Calcium 8.1 MG/DL (8.5-10.1); Osmolality,Calculated 268.2 MOS/KG (273-304)
[2019-07-29] MEDS: ASPIRIN 325 MG TABLET PO SCH (09:16)
[2019-07-29] MEDS: THIAMINE 100 MG TABLET PO SCH (09:16)
[2019-07-29] MEDS: MULTIVITAMIN (CENTRUM) TABLET PO SCH (09:17)
[2019-07-29] MEDS: ATORVASTATIN 40 MG TABLET PO SCH (09:18)
[2019-07-29] MEDS: FOLIC ACID 1 MG TABLET PO SCH (09:18)
[2019-07-29] MEDS: CLOPIDOGREL 75 MG TABLET PO SCH (09:18)
[2019-07-29] MEDS: BUDESONIDE/FORMOTEROL 160-4.5 INHALER 6 GM INH SCH ×2 (09:20→21:38)
[2019-07-29] MEDS: LORazepam 2 MG/1 ML VIAL IV PRN (17:12)
[2019-07-29] MEDS: ALBUTEROL/IPRATROPIUM 3 ML NEB RESP TX PRN (17:20)
[2019-07-29] MEDS: ENOXAPARIN 40 MG/0.4 ML SYRINGE SUBCUT SCH (21:38)
[2019-07-29] MEDS: ESCITALOPRAM 10 MG TABLET PO SCH (21:38)
[2019-07-30] MEDS: traZODone 50 MG TABLET PO PRN ×2 (00:41→21:03)
[2019-07-30] MEDS: ACETAMINOPHEN 325 MG TABLET PO PRN (00:41)
[2019-07-30] MEDS: ESCITALOPRAM 10 MG TABLET PO SCH ×2 (00:42→21:03)
[2019-07-30] MEDS: ENOXAPARIN 40 MG/0.4 ML SYRINGE SUBCUT SCH ×2 (00:43→21:11)
[2019-07-30 01:53] LABS: Barbiturates Screen,Urine Negative (Negative); Benzodiazepines Screen,Urine Negative (Negative); Cannabinoid Screen,Urine Negative (Negative); Opiate Screen,Urine Negative (Negative); Phencyclidine Screen,Urine Negative (Negative)
[2019-07-30] MEDS: ALBUTEROL/IPRATROPIUM 3 ML NEB RESP TX PRN ×2 (02:57→14:01)
[2019-07-30 05:05] LABS: Basophils % 0.5 % (0.0-0.8); Eosinophils # 0.1 10*3/uL (0.0-0.87); Eosinophils % 1.8 % (0.00-10.9); Hematocrit 36.9 VOL% (35.7-47.0); Hemoglobin 11.9 GM/DL (12.0-16.0); Immature Granulocytes % 0.2 %; Immature Granulocytes Absolute 0.01 #; Lymphocytes # 1.6 10*3/uL (1.4-4.0); Lymphocytes % 29.6 % (21.3-54.2); Mean Corpuscular HGB Conc 32.2 GM/DL (32-36); Mean Corpuscular Volume 95.1 FL (87-102); Neutrophils % 56.9 % (38.7-73.9); Platelet Count 217 T/CUMM (130-400); Red Blood Count 3.88 MC/CUMM (3.8-5.5); Red Cell Distribution Width 16.6 % (9.3-17.3); White Blood Count 5.5 T/CUMM (4-12)
[2019-07-30 05:37] LABS: Bilirubin,Total 0.9 MG/DL (0.2-1.0); Calcium 8.1 MG/DL (8.5-10.1); Osmolality,Calculated 269.2 MOS/KG (273-304)
[2019-07-30] MEDS: FOLIC ACID 1 MG TABLET PO SCH (11:08)
[2019-07-30] MEDS: guaiFENesin/DM ER 600-30 MG TABLET PO PRN (11:08)
[2019-07-30] MEDS: CLOPIDOGREL 75 MG TABLET PO SCH (11:08)
[2019-07-30] MEDS: ASPIRIN 325 MG TABLET PO SCH (11:09)
[2019-07-30] MEDS: MULTIVITAMIN (CENTRUM) TABLET PO SCH (11:09)
[2019-07-30] MEDS: THIAMINE 100 MG TABLET PO SCH (11:09)
[2019-07-30] MEDS: ATORVASTATIN 40 MG TABLET PO SCH (11:09)
[2019-07-30] MEDS: BUDESONIDE/FORMOTEROL 160-4.5 INHALER 6 GM INH SCH ×2 (11:10→21:04)
[2019-07-30] MEDS: LORazepam 2 MG/1 ML VIAL IV PRN (15:42)
[2019-07-31] MEDS: THIAMINE 100 MG TABLET PO SCH (09:24)
[2019-07-31] MEDS: ATORVASTATIN 40 MG TABLET PO SCH (09:24)
[2019-07-31] MEDS: MULTIVITAMIN (CENTRUM) TABLET PO SCH (09:24)
[2019-07-31] MEDS: ASPIRIN 325 MG TABLET PO SCH (09:24)
[2019-07-31] MEDS: CLOPIDOGREL 75 MG TABLET PO SCH (09:24)
[2019-07-31] MEDS: FOLIC ACID 1 MG TABLET PO SCH (09:24)
[2019-07-31] MEDS: BUDESONIDE/FORMOTEROL 160-4.5 INHALER 6 GM INH SCH ×2 (09:25→21:10)
[2019-07-31] MEDS: traZODone 50 MG TABLET PO PRN (21:09)
[2019-07-31] MEDS: ESCITALOPRAM 10 MG TABLET PO SCH (21:09)
[2019-07-31] MEDS: ENOXAPARIN 40 MG/0.4 ML SYRINGE SUBCUT SCH (21:10)
[2019-08-01] MEDS: MULTIVITAMIN (CENTRUM) TABLET PO SCH (08:47)
[2019-08-01] MEDS: CLOPIDOGREL 75 MG TABLET PO SCH (08:47)
[2019-08-01] MEDS: FOLIC ACID 1 MG TABLET PO SCH (08:47)
[2019-08-01] MEDS: THIAMINE 100 MG TABLET PO SCH (08:47)
[2019-08-01] MEDS: ASPIRIN 325 MG TABLET PO SCH (08:48)
[2019-08-01] MEDS: ATORVASTATIN 40 MG TABLET PO SCH (08:48)
[2019-08-01] MEDS: BUDESONIDE/FORMOTEROL 160-4.5 INHALER 6 GM INH SCH ×2 (08:50→20:47)
[2019-08-01] MEDS: ACETAMINOPHEN 325 MG TABLET PO PRN ×2 (14:06→20:46)
[2019-08-01] MEDS: ALBUTEROL/IPRATROPIUM 3 ML NEB RESP TX PRN (17:54)
[2019-08-01] MEDS: ENOXAPARIN 40 MG/0.4 ML SYRINGE SUBCUT SCH (20:45)
[2019-08-01] MEDS: ESCITALOPRAM 10 MG TABLET PO SCH (20:45)
[2019-08-01] MEDS: traZODone 50 MG TABLET PO PRN (20:45)
[2019-08-02 04:55] LABS: Basophils # 0.1 10*3/uL (0.0-0.2); Eosinophils # 0.1 10*3/uL (0.0-0.87); Eosinophils % 2.7 % (0.00-10.9); Hematocrit 34.9 VOL% (35.7-47.0); Hemoglobin 11.4 GM/DL (12.0-16.0); Immature Granulocytes % 0.2 %; Immature Granulocytes Absolute 0.01 #; Lymphocytes # 1.5 10*3/uL (1.4-4.0); Lymphocytes % 31.6 % (21.3-54.2); Mean Corpuscular HGB Conc 32.7 GM/DL (32-36); Mean Corpuscular Volume 96.4 FL (87-102); Mean Platelet Volume 11.4 FL (9.6-12.0); Monocytes % 15.8 % (1.7-12.7); Neutrophils % 48.7 % (38.7-73.9); Platelet Count 200 T/CUMM (130-400); Red Blood Count 3.62 MC/CUMM (3.8-5.5); Red Cell Distribution Width 16.5 % (9.3-17.3); White Blood Count 4.9 T/CUMM (4-12)
[2019-08-02 05:10] LABS: Calcium 8.6 MG/DL (8.5-10.1); Osmolality,Calculated 276.7 MOS/KG (273-304)
[2019-08-02 05:18] LABS: Atypical Lymphocytes Few; Eosinophils 2 % (0-10); Hypochromasia 1+; Lymphocytes 38 % (20-55); Segmented Neutrophils 49 % (50-85); Total Cells Counted 100
[2019-08-02 05:19] LABS: Giant Platelets Few; Ovalocytes Slight
[2019-08-02 05:20] LABS: Anisocytosis 1+; Microcytosis 1+
[2019-08-02] MEDS: THIAMINE 100 MG TABLET PO SCH (09:36)
[2019-08-02] MEDS: ATORVASTATIN 40 MG TABLET PO SCH (09:36)
[2019-08-02] MEDS: ERGOCALCIFEROL 50,000 UNIT CAPSULE PO SCH (09:36)
[2019-08-02] MEDS: CLOPIDOGREL 75 MG TABLET PO SCH (09:36)
[2019-08-02] MEDS: guaiFENesin/DM ER 600-30 MG TABLET PO PRN (09:36)
[2019-08-02] MEDS: FOLIC ACID 1 MG TABLET PO SCH (09:36)
[2019-08-02] MEDS: MULTIVITAMIN (CENTRUM) TABLET PO SCH (09:36)
[2019-08-02] MEDS: ASPIRIN 325 MG TABLET PO SCH (09:36)
[2019-08-02] MEDS: BUDESONIDE/FORMOTEROL 160-4.5 INHALER 6 GM INH SCH ×2 (09:37→21:10)
[2019-08-02] MEDS: ACETAMINOPHEN 325 MG TABLET PO PRN ×2 (10:01→17:25)
[2019-08-02] MEDS ORDERED: TUBERCULIN SKIN TEST 0.1 ML SYRINGE INTRADERM ONE (11:03)
[2019-08-02] MEDS: ALBUTEROL/IPRATROPIUM 3 ML NEB RESP TX PRN ×2 (12:42→22:03)
[2019-08-02] MEDS: traZODone 50 MG TABLET PO PRN (21:07)
[2019-08-02] MEDS: ENOXAPARIN 40 MG/0.4 ML SYRINGE SUBCUT SCH (21:07)
[2019-08-02] MEDS: ESCITALOPRAM 10 MG TABLET PO SCH (21:07)
[2019-08-03] MEDS: ACETAMINOPHEN 325 MG TABLET PO PRN ×2 (09:44→17:47)
[2019-08-03] MEDS: THIAMINE 100 MG TABLET PO SCH (09:45)
[2019-08-03] MEDS: MULTIVITAMIN (CENTRUM) TABLET PO SCH (09:45)
[2019-08-03] MEDS: BUDESONIDE/FORMOTEROL 160-4.5 INHALER 6 GM INH SCH ×2 (09:45→20:42)
[2019-08-03] MEDS: CLOPIDOGREL 75 MG TABLET PO SCH (09:45)
[2019-08-03] MEDS: ASPIRIN 325 MG TABLET PO SCH (09:45)
[2019-08-03] MEDS: ATORVASTATIN 40 MG TABLET PO SCH (09:45)
[2019-08-03] MEDS: FOLIC ACID 1 MG TABLET PO SCH (09:52)
[2019-08-03] MEDS: ALBUTEROL/IPRATROPIUM 3 ML NEB RESP TX PRN ×2 (12:46→19:21)
[2019-08-03] MEDS: ENOXAPARIN 40 MG/0.4 ML SYRINGE SUBCUT SCH (20:40)
[2019-08-03] MEDS: ESCITALOPRAM 10 MG TABLET PO SCH (20:40)
[2019-08-03] MEDS: traZODone 50 MG TABLET PO PRN (20:46)
[2019-08-04] MEDS: FOLIC ACID 1 MG TABLET PO SCH (09:19)
[2019-08-04] MEDS: THIAMINE 100 MG TABLET PO SCH (09:19)
[2019-08-04] MEDS: MULTIVITAMIN (CENTRUM) TABLET PO SCH (09:19)
[2019-08-04] MEDS: ASPIRIN 325 MG TABLET PO SCH (09:20)
[2019-08-04] MEDS: CLOPIDOGREL 75 MG TABLET PO SCH (09:20)
[2019-08-04] MEDS: ATORVASTATIN 40 MG TABLET PO SCH (09:20)
[2019-08-04] MEDS: BUDESONIDE/FORMOTEROL 160-4.5 INHALER 6 GM INH SCH (09:21)
[2019-08-04 11:51] VITALS: BP 126/77
[2019-08-04] MEDS: ACETAMINOPHEN 325 MG TABLET PO PRN (12:40)
== END 2019-08-04 13:26 | DRG 45 ==
LOC: N.ED 22:00 → N.EDINP 22:00 → N.4E 07-26 02:58 → SUATTDRO 07-27 16:59
PROVIDERS: ADMIT Internal Medicine; ATTEND Internal Medicine Cardiovascular Disease